=== PATIENT | male | born 1980 | race Caucasian/White ===

== ENCOUNTER → 2018-01-03 12:50 | Outpatient (CLI) | payer MEDICARE, MEDICAID, SELFPAY ==
--- NOTE | 2018-01-03 13:00 | RAD_ITS ---
STUDY: SWALLOWING STUDY REASON FOR EXAM: Male, 37 years old. Dysphagia. TECHNIQUE: The examination was performed with Speech Pathology and radiology in attendance. Under fluoroscopic observation, the patient ingested thin barium, thick barium, barium pudding and barium coated cracker. FLUOROSCOPY TIME: 1:55 minutes/seconds RADIOLOGIST INVOLVEMENT: Dr. Lee was present during the entire exam providing supervision. COMPARISON: None available. FINDINGS: The following was observed during swallowing of the various mixtures of barium: Thin Barium: There was no finding of adarsh aspiration but there was mild transient laryngeal penetration. Thick Barium: There was no finding of aspiration or laryngeal penetration. Barium Pudding: There was no finding of aspiration or laryngeal penetration. Barium Coated Cracker: There was no finding of aspiration or laryngeal penetration. RAD/Swallowing Function w/Video IMPRESSION: Please see speech pathology report for additional details. No adarsh aspiration identified. Mild laryngeal penetration noted with mild increased risk for aspiration. The swallow study findings were discussed with the patient by the speech pathologist at the conclusion of the examination. Please see speech pathology report for more information and recommendations. The procedure was performed by Jeana Nova under the direct supervision of Dr. Lee. Electronically Signed: Mansoor Lee, at 14:53 EDT Tel , Service support ,
--- NOTE | 2018-01-03 13:00 | SP.MBSS_ITS ---
PRIMARY / SECONDARY DIAGNOSIS: dysphagia (R13.10) REFERRING PHYSICIAN: Dr. Paul Mccoy MD CURRENT DIET: regular textures, thin liquids DENTITION: WFL MENTAL STATUS: appropriate for participation RESPIRATORY STATUS: O2 via room air PREVIOUS MODIFIED BARIUM SWALLOW STUDY: none REASON FOR REFERRAL: Patient is an 37 year old male referred for a modified barium swallow (MBS) study to objectively assess the Patients oropharyngeal swallow function under fluoroscopy secondary to the diagnosis of cerebral palsy. The Patient was accompanied by his detention caregiver, both deny any overt concerns with aspiration, objective assessment recommended following recent move to his new detention, with the staff recommending assessment to ensure tolerance. Per prior physical therapy workup, the Patient is able to walk up to 400 feet prior to fatiguing, able to complete ADL?s with minimal assistance (does have home health aides). MEDICAL HISTORY: Cerebral palsy with spastic diplegia, borderline MRDD, hypertension STUDY FINDINGS: Patient participated in a Modified Barium Swallow (MBS) study on 01/03/2018. Dr. Lee was the radiologist present for this evaluation. This study was recorded in the lateral view and images were sent to PACs for storage. The following consistencies were presented to this patient for analysis of oropharyngeal swallow function: thin liquids, pudding, and a regular textured, Freda Doone cookie. Results of the MBS are as follows: PENETRATION / ASPIRATION SCALE (AKHTAR): 1 = does not enter airway 2 = enters airway/above vocal folds/ejected 3 = enters airway/above vocal folds/not ejected 4 = enters airway/contacts vocal folds/ejected 5 = enters airway/contacts vocal folds/not ejected 6 = enters airway/below vocal folds/ejected 7 = enters airway/below vocal folds/not ejected despite effort 8 = enters airway/below vocal folds/no effort PENETRATION / ASPIRATION SCALE (SCORE) WITH VIDEOFLOROSCOPIC SCALE SCORE: Thin liquid - 5 mL tsp.: 1 Thin liquids via cup (single sip): 1 Thin liquids via cup (single sip): 2 Thin liquids via cup (single sip): 1 Thin liquids via cup (sequential swallows): 1 Pudding via spoon: 1 Pudding via spoon: 1 Regular textured cookie: 1 Thin liquids via cup (sequential swallows): 1 Thin liquids via cup (AP view): 1 IMPRESSION: DIAGNOSIS: mild oropharyngeal dysphagia (R13.12) ORAL PHASE CHARACTERIZED BY: LABIAL SEAL: no labial escape TONGUE CONTROL DURING BOLUS MANIPULATION: cohesive bolus between tongue to palatal seal BOLUS PREPARATION / MASTICATION: timely and efficient chewing and mashing BOLUS TRANSPORT / LINGUAL MOTION: brisk tongue motion with piecemeal deglutition ORAL RESIDUE: trace residue lining oral structures PHARYNGEAL PHASE CHARACTERIZED BY: INITIATION OF PHARYNGEAL SWALLOW: bolus head at posterior laryngeal surface of epiglottis at first hyoid excursion SOFT PALATE ELEVATION: no bolus between soft palate and pharyngeal wall LARYNGEAL ELEVATION: partial superior movement of thyroid cartilage/partial approximation of arytenoids cartilage to epiglottic petiole ANTERIOR HYOID EXCURSION: partial anterior movement EPIGLOTTIC MOVEMENT: complete epiglottic inversion LARYNGEAL VESTIBULE CLOSURE AT HEIGHT OF SWALLOW: complete laryngeal vestibule closure with no air/contrast in laryngeal vestibule PHARYNGEAL STRIPPING WAVE: pharyngeal stripping wave present / complete PHARYNGEAL CONTRACTION: complete PHARYNGOESOPHAGEAL SEGMENT OPENING: partial distension and partial duration; partial obstruction of flow TONGUE BASE RETRACTION: trace column of contrast between tongue base and posterior pharyngeal wall PHARYNGEAL RESIDUE: intermittent collection of residue within or on pharyngeal structures (primarily the pyriform sinus) ESOPHAGEAL PHASE CHARACTERIZED BY: ESOPHAGEAL BOLUS CLEARANCE IN THE UPRIGHT POSITION: complete clearance; esophageal coating DIET TEXTURE RECOMMENDATIONS: Will recommend a regular textured, thin liquid diet. COMPENSATORY STRATEGIES RECOMMENDED: Seated upright at 90 degrees during PO intake INTERPRETATION OF RESULTS: Patient presents with very mild oropharyngeal dysphagia (R13.12) secondary to the diagnosis of cerebral palsy with spastic diplegia. Swallow profile primarily marked by a mild impairment in pharyngeal swallow onset timing resulting in suboptimal bolus location upon swallow onset; and mild reduction in reduced anterior hyoid excursion contributing to reduced pharyngoesophageal segment opening with pharyngeal retention within the pyriforms (cleared with volitional re-swallow). Sufficient laryngeal vestibule pressure generated to expel penetrated material. Noted calcification along the anterior tracheal wall and anterior vocal fold notch. No aspiration appreciated throughout trials. RECOMMENDATIONS: Patient able to comprehend and express recommended intake precautions detailed above with sufficient detail to suggest high likelihood of compliance. Provided brief overview of signs and symptoms of aspiration, with recommendations for the Patient to further discuss symptoms with PCP. No further skilled speech-language services warranted at this time targeting dysphagia. ADDITIONAL COMMENTS/RECOMMENDATIONS: Results and recommendations were discussed with the Patient immediately following MBS completion, with the Patient verbalizing understanding and agreement with all recommendations and education provided. IMAGE COUNT: [id number] G-CODES: SWALLOWING [id number] Current Status: CI SWALLOWING G8997 Goal Status: CI SWALLOWING G8998 Discharge Status: CI Farhad Pierre M.A., [facility]LECT[employer]ICAL TRYOUT PERSON [facility] Speech-Language Pathology Department [email or web address]
== END ==
PROVIDERS: Family Provider Family Medicine; PCP Family Medicine; Referring Provider Family Medicine; Visit Provider Family Medicine
DX: R13.10 Dysphagia, unspecified (principal)
CPT/HCPCS: 74230; 92611; G8996; G8997; G8998

== ENCOUNTER 2018-01-30 16:14 | Emergency (ER) | payer MEDICARE, MEDICAID, SELFPAY ==
[2018-01-30 16:16] VITALS: BP 141/81; PULSE 84; RESP 19; TEMP 35.9; O2SAT 99; BMI 22.9
--- NOTE | 2018-01-30 16:21 | RAD_ITS ---
STUDY: X-RAY - LEFT ELBOW REASON FOR EXAM: Male, 37 years old. Pain after a fall TECHNIQUE: 3 view(s) of the elbow. COMPARISON: None. FINDINGS: Normal visualized humerus, radius and ulna. Normal radiocapitellar and ulnotrochlear articulations. The soft tissue structures are unremarkable. RAD/Elbow min 3 Views IMPRESSION: Normal x-ray examination of the elbow. Electronically Signed: Jose Lao MD at 17:05 EST , Service support ,
--- NOTE | 2018-01-30 16:48 | RAD_ITS ---
STUDY: X-RAY - RIGHT ELBOW REASON FOR EXAM: Male, 37 years old. Pain after a fall TECHNIQUE: 4 view(s) of the elbow. COMPARISON: None. FINDINGS: Normal visualized humerus, radius and ulna. Normal radiocapitellar and ulnotrochlear articulations. The soft tissue structures are unremarkable. RAD/Elbow min 3 Views IMPRESSION: Normal x-ray examination of the elbow. Electronically Signed: Jose Lao MD at 17:03 EST , Service support ,
--- NOTE | 2018-01-30 16:56 | ED.DCSUM_ITS ---
- ER Visit Summary Date of Service: 01/30/18 Chief Complaint: Sustained a mechanical fall he had both of his elbows and is complaining of pain. He is MRDD. He has no headache no head injury. Denies neck pain or any other injury. Physical Examination: Otherwise unremarkable exam without any significant findings. He is MRDD features. He has no shoulder pain or wrist pain he has bilateral posterior elbow pain, however both elbows have full range of motion with no pain on pronation supination flexion and extension. Emergency Department Course and Treatment: X-ray unremarkable, patient be discharged in stable condition. Reassurance given. Impression: Bilateral Elbow contusion This note was generated with [employer] dictation software. It may contain incorrect words, spelling, and punctuation that were not noted in review of the chart prior to signing ED Disposition - Plan for ED Patient: Disposition: Home or Assisted Living Chief Complaint: Upper Extremity Injury Instructions: ED Contusion Upper Ext Referrals: Oleg Mccoy MD [Primary Care Provider] - 3-5 Days
== END 2018-01-30 17:12 | disposition home or self-care (01) ==
PROVIDERS: Emergency Provider Emergency Medicine; Family Provider Family Medicine; PCP Family Medicine
DX: S50.02XA Contusion of left elbow, initial encounter (principal); S50.01XA Contusion of right elbow, initial encounter; F79 Unspecified intellectual disabilities; W19.XXXA Unspecified fall, initial encounter; Y93.89 Activity, other specified; Y92.89 Other specified places as the place of occurrence of the external cause; Y99.8 Other external cause status
CPT/HCPCS: 73080; 99282

== ENCOUNTER → 2018-06-05 16:45 | Outpatient (CLI) | payer MEDICARE, MEDICAID, SELFPAY ==
--- NOTE | 2018-06-05 18:15 | MRI_ITS ---
STUDY: MRI BRAIN WITH AND WITHOUT CONTRAST (ATTENTION INTERNAL AUDITORY CANALS - I.A.C.'s) REASON FOR EXAM: Male, 37 years old. Left ear hearing loss. TECHNIQUE: Standardized multiplanar fat and water weighted pulse sequences were obtained. Gadavist 8ml IV was administered for the contrast portion of the examination. COMPARISON: None. FINDINGS: Normal bilateral temporal bones. Normal bilateral internal auditory canals. There is no demonstrated intracanalicular or cisternal vestibular schwannoma (acoustic neuroma). There is no enhancement of the bilateral VIIth or VIIIth cranial nerves. Normal bilateral cochlea, vestibules and semicircular canals. Normal size of the ventricles and extra-axial spaces for the patient's age. Normal white matter tracts of the supratentorial brain. Normal bilateral basal ganglia. Normal thalami. Normal flow voids within the major intracranial circulation suggesting patency by spin echo criteria. There is no enhancing intra-axial or extra-axial abnormality. There is no extra-axial fluid accumulation. Normal sella turcica, pituitary gland, infundibular stalk, optic chiasm and hypothalamus. Normal tectal plate and pineal gland. Normal midbrain, lenny and medulla. Normal cerebellum. Normal basal cisterns. No demonstrated orbital abnormality, within the constraints of a routine brain study. There is mild mucosal thickening in the ethmoid and sphenoid sinuses. Normal calvarium and skull base. Normal visualized soft tissue structures. MRI/Brain W/WO Contrast IMPRESSION: 1. Unremarkable internal auditory canals. No evidence of vestibular schwannoma. 2. Mild microvascular ischemic changes. Atrophy. 3. Mild chronic sinusitis. Electronically Signed: Ammy Avelar MD at 20:32 EDT Tel , Service support ,
== END ==
PROVIDERS: Family Provider Family Medicine; PCP Family Medicine; Referring Provider Otolaryngology; Visit Provider Otolaryngology
DX: H90.41 Sensorineural hearing loss, unilateral, right ear, with unrestricted hearing on the contralateral side (principal)
CPT/HCPCS: 70553; A9585

== ENCOUNTER 2018-06-20 14:30 | Outpatient (RCR) | payer MEDICARE, MEDICAID, SELFPAY ==
--- NOTE | 2018-05-22 18:09 | HP.OTEVAL_ITS ---
Patient's Visit Information BRANNON DIAMOND is a 37 year old M, referred to Occupational Therapy by EDDY DIXON, with a diagnosis of CP, Ulnar collapse, R thumb. Date of Evaluation: 05/09/18 Occupational Therapist: Nathalie Tadeo - Subjective Subjective: Pt seen for initial OT eval after rupture ulnar collateral ligament of R thumb. Pt had reconstruction sx Mar 15, 2018 for UCL, pt was in cast for 6 wks after sx than in thumb spica splint 05/01/18. L hand dominent. Pt also has medical hx of CP. Pt lives in correction with 3 roommates, 24hr care, pt has assist with dressing, bathing, as needed, has assist with IADLs. Uses w/c and forearm crutches for mobility. Rides in bus to work daily. 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 - Objective Objective/Observation: Pt demo decreased ROM and strength R thumb - ROM ROM Comments: R thumb IP 0/40, MP 0/60 CMC 33'. L thumb IP 0/85, MP 0/96 CMC 68' - Strength Panel Lay Up Worker: L hand 90# R hand DNT Lateral Pinch: L hand 12# R hand DNT Tripod Pinch: L hand 14# R hand DNT - Edema Other: slight edema R thumb region - Sensation Sensation Comments: No numbness or tingling, pt states no hypersensitivity to incision - Quick DASH-Disab of Arm,Shoulder& Hand Quick DASH Score: 65.0000 - Goals Goal:100% adherence to protocol: Yes Goal:Daily scar massage when approriate: Yes Goal:ROM equal to unaffected hand: Yes Goal:Panel Lay Up Worker/Pinch strength at least 75% of unaffected hand: Yes Goal:No pain with affected hand use: Yes Goal:Full use of affected hand in daily activities including: Yes - Rehabilitation General Assessment: Pt demo decreased R thumb ROM, R hand strength and functional use of R hand all indicating a need for skilled OT services to increase R thumb ROM per protocol, R hand strength per protocol, educate on R UE HEP and scar mngmt tech. Rehabilitation Potential: Excellent - Anticipated Interventions Anticipated Interventions: A/AAROM/PROM, Strengthening, Edema Control, Scar Care, Massage, Modalities, Orthoses, Joint Protection/Energy Conservation, Fine Motor Coord/Gregg, ADL Training, Education re Diagnosis, Education re Skin Care and Precautions, Education re Self Massage Techniques, Caregiver Training, Home Program - Visit Plan Frequency: 1-2x /Week Duration: 4-6 Weeks General Plan: increase R thumb ROM per protocol, R hand strength per protocol, educate on R UE HEP and scar mngmt tech. TEXT: Thank you for the opportunity to evaluate your patient. For Medicare and Medicare HMO plans, please review the plan of care and approve it. It will need to be FAXED BACK to us at [phone] for Medicare purposes. Please let me know if there are questions or concerns regarding this plan of care. Physician Signature: Date:
--- NOTE | 2018-06-20 15:38 | HP.OTDCSUM_ITS ---
HP - OT D/C Summary It has been my pleasure to treat BRANNON DIAMOND under orders from EDDY DIXON, for the diagnosis of CP, Ulnar collapse, R thumb for a total of 6 visit(s). Please see the following information for a summary of their discharge status. - Overall Improvement % Improvement: 100 - Objective Objective/Function: increase R hand strength, follow protocol. lateral pinch 6#. tripod pinch 6# - Goals Patient Goals: Regain Strength, Decrease Pain, Decrease Swelling/Stiffness, Improve Fine Motor Skills, Use Hand/Wrist/Arm Normally Again, Increase ROM, Be More Independent in ADLS, Resume Former Household Responsibilities (Cooking,Cleaning,Yard, etc.), Resume Hobbies Goal:100% adherence to protocol: Yes Goal:Daily scar massage when approriate: Yes Goal:ROM equal to unaffected hand: Yes Goal:Ocular Care Technician/Pinch strength at least 75% of unaffected hand: Yes Goal:No pain with affected hand use: Yes Goal:Full use of affected hand in daily activities including: Yes - Plan Plan: d/c OT services. - D/C Information Discharge Comments: Pt has progressed with R thumb strength and AROM. Pt back to completing all BADLs/IADLs and hobbies independently without any pain. Pt and caregivers have been educated on theraputty HEP to continue to increase R hand household refrigerator mechanic strength. Pt has progressed with R hand household refrigerator mechanic strength to 55# and lateral pinch/tripod pinch to 8#. Educated pt and caregiver on recommendations to possibly trial platform forearm crutches to decrease pressure on bilateral thumbs if safe for pt with his ambulation only. Pt no longer requires skilled OT interventions with no pain, increased household refrigerator mechanic strength and education on R hand HEP to continue with progressing with household refrigerator mechanic strength with good understanding and demo. D/C OT services. If there are questions or concerns regarding this patient's occupational therapy, please fell free to call me at [phone]. Thank you for the referral of this patient. Sincerely, Nathalie Tadeo
== END 2018-06-20 19:00 | disposition home or self-care (01) ==
LOC: OT 14:30
PROVIDERS: Family Provider Family Medicine; PCP Family Medicine
DX: G80.9 Cerebral palsy, unspecified (principal); S63.641D Sprain of metacarpophalangeal joint of right thumb, subsequent encounter
CPT/HCPCS: 97110; 97165; 97166; 97530; 97763

== ENCOUNTER 2018-10-08 19:05 | Emergency (ER) | payer MEDICARE, MEDICAID, SELFPAY ==
[2018-10-08 19:08] VITALS: BP 116/62; PULSE 104; RESP 18; TEMP 37.5; O2SAT 92; BMI 31.6
--- NOTE | 2018-10-08 19:13 | ED.RN ---
CALLED FOR EKG PER RN REQUEST, NO OLD EKGS IN ES
--- NOTE | 2018-10-08 19:26 | ED.RN ---
WHILE DRAWING BLOOD FROM IV PATIENT HEART RATE DROPPED TO THE 50'S AND PATIENT COMPLAINED OF LIGHT HEADEDNESS. HEAD OF BED DOWN, HEART RATE UP INTO THE 70'S. WILL CONTINUE TO MONITOR.
--- NOTE | 2018-10-08 20:09 | RAD_ITS ---
STUDY: X-RAY CHEST REASON FOR EXAM: Male, 37 years old. Left chest pain TECHNIQUE: Frontal view COMPARISON: None. FINDINGS: The lungs are clear and expanded. There is no demonstrated pleural abnormality. Normal size heart. Normal mediastinum and booker. Normal visualized pulmonary arteries. Normal visualized aortic arch and descending thoracic aorta. Degenerative changes and scoliosis of the visualized thoracic spine. Normal visualized ribs, clavicles, and shoulders. There is no demonstrated abnormality of the visualized soft tissue structures of the upper abdomen. RAD/Chest 1 View (Portable) IMPRESSION: Normal x-ray examination of the chest. Electronically Signed: Emiliano Jimenez DO at 20:24 EDT Tel [phone], Service support ,
--- NOTE | 2018-10-08 20:09 | EKG12_ITS ---
Test Reason : CP Blood Pressure : / mmHG Vent. Rate : 098 BPM Atrial Rate : 098 BPM P-R Int : 152 ms QRS Dur : 082 ms QT Int : 318 ms P-R-T Axes : 024 059 009 degrees QTc Int : 405 ms Normal sinus rhythm Normal ECG Confirmed by HOWIE SYKES, BABATUNDE ([id number]), health editor LORI SUÁREZ ([id number]) on 10/10/2018 11:37:08 AM Referred By: ANAID Confirmed By:BABATUNDE DENISE MD
[2018-10-08 20:27] VITALS: BP 112/74; PULSE 93; RESP 25; O2SAT 94
[2018-10-08 20:28] VITALS: O2SAT 95
[2018-10-08] MEDS: 0.9% Normal Saline 1,000 ML 150 ML IV (20:33)
[2018-10-08] MEDS: Ketorolac 30 MG/ML Syringe IV (20:34)
[2018-10-08 20:39] LABS: Anion Gap 8 (5-15); BUN 21 mg/dL (7-18); BUN/Creat Ratio 23.2 RATIO (10-20); Calcium,Total 9.3 mg/dL (8.5-10.1); Chloride 106 mmol/L (98-107); EST Glomerular Filtration Rate 99 mL/min (>60); Est Glom Filt Rate - Afr Amer 120 mL/min (>60); Estimated Creatinine Clearance 104.05 ml/min; Glucose 119 mg/dL (74-106); Potassium 3.8 mmol/L (3.5-5.1); Sodium Level 138 mmol/L (136-145)
[2018-10-08 20:43] LABS: Absolute Lymphocyte Count 2.12 X10^3/ul (0.83-4.51); Absolute Neutrophil Count 6.5 X10^3/uL (2.0-7.7); Basophil# 0.04 X10^3/uL; Basophil% 0.4 % (0-1); Eosinophil# 0.21 X10^3/uL; Eosinophils% 2.1 % (0-5); Hematocrit 47.1 % (40-54); Hemoglobin 16.6 g/dl (13.0-16.5); Lymphocyte # 2.12 X10^3/ul (4.0); Mean Corp Hgb Conc 35.2 g/gl (32-36); Mean Corpuscular Hgb 31.2 pg (27.0-32.0); Mean Corpuscular Volume 88.5 fL (80-94); Mean Platelet Vol. 10.7 fl (6.2-12.0); Monocyte# 1.17 X10^3/uL; Monocyte% 11.6 % (0-10); Neutrophil % 64.4 % (47-70); Platelet Count 354 K/mm3 (150-450); RBC Distribution Width CV 12.7 % (11.6-14.6); Red Blood Count 5.32 M/mm3 (4.6-6.2); White Blood Count 10.1 K/mm3 (4.4-11.0)
[2018-10-08 20:44] LABS: POSITIVE COUNT NO; POSITIVE DIFFERENTIAL NO; POSITIVE MORPHOLOGY NO
[2018-10-08 20:50] LABS: D-Dimer Quantitative (DVT/PE) < 0.27 FEU/ug/m (0.27-0.49)
[2018-10-08 21:07] VITALS: BP 119/69; PULSE 86; RESP 18; O2SAT 96
--- NOTE | 2018-10-08 21:51 | ED.DCSUM_ITS ---
History of Present Illness Chief Complaint: Chest Pain Informant: Patient Onset: Today Current Severity: Mild Maximum Severity: Moderate Narrative: Patient presents with staff member with complaint of left upper chest pain that radiated down the left arm. Patient was given aspirin and nitro with squad with minimal improvement. Patient denies history of cardiac problems. - Past Medical History (1) Cerebral palsy Status: Acute (2) Hypertension Status: Chronic Past Medical History - Allergies and Home Meds Allergies/Adverse Reactions: Allergies No Known Allergies Allergy (Verified 10/08/18 19:12) Primary Care Physician: Oleg Mccoy MD [Primary Care Provider] - Prior records reviewed: Yes Past Medical History: - - Reviewed Lives: - - senior living Smoking Status: Current every day smoker Review of Systems General: Denies: Chills, Fever Cardiovascular: Reports: Chest pain Respiratory: Reports: Dyspnea. Denies: Cough, Sputum Gastrointestinal: Denies: Abdominal pain, Nausea, Vomiting Genitourinary: Denies: Dysuria Physical Exam Vital Signs/Narrative: Vital Signs Temp Pulse Resp BP Pulse Ox 10/08/18 21:07 86 18 119/69 96 10/08/18 20:28 95 10/08/18 20:27 93 25 H 112/74 94 10/08/18 19:08 99.5 F H 104 H 18 116/62 92 General: Well nourished, Well developed ENT: Moist mucous membranes Cardiovascular: Regular rate, Regular rhythm Respiratory: No distress, CTA bilaterally, - - Reproducible left upper chest wall tenderness. No crepitus. Abdomen: Soft, Nontender Skin: Normal color, No rash Neurological: Alert Diagnostic/Tx/Re-eval Impressions Chest X-Ray 10/08/18 20:09 IMPRESSION: Normal x-ray examination of the chest. Electronically Signed: Emiliano Jimenez DO at 20:24 EDT Tel [phone], Service support , 10/08/18 20:09 Chest 1 View (Portable) [RAD] Stat Laboratory Results 10/08/18 10/08/18 10/08/18 19:21 19:21 19:21 WBC 10.1 RBC 5.32 Hgb 16.6 H Hct 47.1 MCV 88.5 MCH 31.2 MCHC 35.2 RDW 12.7 RDW Differential 41.0 Plt Count 354 MPV 10.7 Immature Gran % (Auto) 0.500 Neut % (Auto) 64.4 Lymph % (Auto) 21.0 Sutter % (Auto) 11.6 H Eos % (Auto) 2.1 Baso % (Auto) 0.4 Absolute Neuts (auto) 6.5 Absolute Lymphs (auto) 2.12 D-Dimer Quant (PE/DVT) < 0.27 L Sodium 138 Potassium 3.8 Chloride 106 Carbon Dioxide 24.0 Anion Gap 8 BUN 21 H Creatinine 0.90 Estim Creat Clear Calc 104.05 Est GFR (MDRD) Af Amer 120 Est GFR (MDRD) Non-Af 99 BUN/Creatinine Ratio 23.2 H Glucose 119 H Calcium 9.3 Troponin I < 0.015 - EKG Initial EKG Interpretation: Sinus Rhythm, - - Sinus at 98 with no acute ischemia. - Medical Decision Making Patient presents with left upper chest pain shortly after getting off of a riding lawnmower. Pain is reproducible with palpation of the left upper chest. Work-up was unremarkable. On repeat evaluation patient is resting comfortably with no complaints. ED Disposition - Plan for ED Patient: Disposition: Home or Assisted Living Diagnosis: Chest wall pain Instructions: Chest Wall Strain Referrals: Oleg Mccoy MD [Primary Care Provider] - 3-5 Days if not improving
[2018-10-08 22:13] VITALS: BP 126/78; PULSE 87; RESP 20; O2SAT 97
== END 2018-10-08 22:39 | disposition home or self-care (01) ==
PROVIDERS: Emergency Provider Emergency Medicine; Family Provider Family Medicine; PCP Family Medicine
DX: R07.89 Other chest pain (principal); G80.9 Cerebral palsy, unspecified; I10 Essential (primary) hypertension; F17.200 Nicotine dependence, unspecified, uncomplicated; Z79.899 Other long term (current) drug therapy
CPT/HCPCS: 71045; 80048; 84484; 85025; 85379; 93005; 96361; 96374; 99285; J7030; A4216

== ENCOUNTER 2018-12-12 11:29 | Emergency (ER) | payer MEDICARE, MEDICAID, SELFPAY ==
[2018-12-12 11:30] VITALS: BP 130/82; PULSE 89; RESP 17; TEMP 36.9; O2SAT 96; BMI 30.5
--- NOTE | 2018-12-12 12:11 | CT_ITS ---
STUDY: CT ABDOMEN AND PELVIS WITH CONTRAST REASON FOR EXAM: Male, 38 years old. One day history of right lower quadrant pain. RADIATION DOSAGE (If Supplied By Facility): CTDIvol = ( 13.50 ) mGy, DLP = ( 745.38 ) mGycm TECHNIQUE: Transaxial images were obtained from the dome of the diaphragm to the symphysis pubis with oral contrast. 15ML Oral Gastrografin was administered. Sagittal and coronal images were reconstructed. Individualized dose optimization techniques were used for this CT. COMPARISON: Comparison is made with prior study dated September 08, 2014. FINDINGS: Mild degree of increased markings at the lung bases suggestive of basilar dependent atelectasis or scarring. This is unchanged. The visualized portions of the heart are within normal limits. There is decreased attenuation of the liver consistent with steatosis. Hepatomegaly. Normal gallbladder and extrahepatic biliary system. Normal spleen. Normal pancreas. Normal bilateral adrenal glands. Normal right kidney. Normal left kidney. There is a moderate-sized hiatal hernia. Normal small intestine. Normal colon. The appendix is visualized and appears normal. Normal abdominal aorta. Normal inferior vena cava. Normal retroperitoneum. Distended urinary bladder. There is a small umbilical hernia containing fat. Spondylolysis of the pars interarticularis at the L5 vertebrae. CT/Abdomen/Pel W ORAL Cont Only IMPRESSION: Hepatomegaly and diffuse fatty infiltration of the liver. Moderate sized hiatal hernia. Electronically Signed: Yordy Tompkins, at 14:13 EDT , Service support ,
[2018-12-12 12:41] LABS: Absolute Lymphocyte Count 1.68 X10^3/uL (0.83-4.51); Absolute Neutrophil Count 6.9 X10^3/uL (2.0-7.7); Basophil# 0.07 X10^3/uL; Basophil% 0.7 % (0-1); Eosinophil# 0.15 X10^3/uL; Eosinophils% 1.5 % (0-5); Hematocrit 50.5 % (40-54); Hemoglobin 17.1 g/dL (13.0-16.5); Lymphocyte # 1.68 X10^3/ul (4.0); Lymphocyte % 17.2 % (19-41); Mean Corp Hgb Conc 33.9 g/dL (32-36); Mean Corpuscular Hgb 31.1 pg (27.0-32.0); Mean Corpuscular Volume 91.8 fL (80-94); Mean Platelet Vol. 10.3 fl (6.2-12.0); Monocyte# 0.97 X10^3/uL; Monocyte% 9.9 % (0-10); NRBC Flagged by Analyzer 0 % (0-5); Neutrophil # 6.85 X10^3/uL (2.7-7.7); Platelet Count 308 K/mm3 (150-450); RBC Distribution Width CV 12.8 % (11.6-14.6); RBC Distribution Width SD 43.2 fl (35.1-43.9); White Blood Count 9.8 K/mm3 (4.4-11.0)
[2018-12-12 12:46] LABS: ALB/GLOB Ratio 1.2 RATIO (0.9-2.4); AST(SGOT) 48 U/L (15-37); Alanine Aminotransfer ALT/SGPT 115 U/L (16-61); Albumin, Serum 4.2 g/dL (3.2-5.0); Alkaline Phosphatase 66 U/L (45-117); Anion Gap 9 (5-15); BUN 20 mg/dL (7-18); BUN/Creat Ratio 21.4 RATIO (10-20); Calcium,Total 9.5 mg/dL (8.5-10.1); Chloride 105 mmol/L (98-107); Creatinine, Serum 0.93 mg/dL (0.70-1.30); EST Glomerular Filtration Rate 96 mL/min (>60); Est Glom Filt Rate - Afr Amer 116 mL/min (>60); Globulin 3.4 g/dL (2.2-4.2); Glucose 89 mg/dL (74-106); Potassium 4.1 mmol/L (3.5-5.1); Protein, Total 7.6 g/dL (6.4-8.2); Sodium Level 140 mmol/L (136-145)
[2018-12-12] MEDS: Morphine 4 MG/ML Syringe IV (12:54)
[2018-12-12] MEDS: Ondansetron 4 MG/2 ML Vial IV (12:54)
[2018-12-12] MEDS: 0.9% Normal Saline 1,000 ML 125 ML IV (12:56)
[2018-12-12 13:48] LABS: Bacteria 0 SEEN /hpf (None Seen); Color, Urine Yellow (Yellow); Glucose, Dipstick Normal (Normal); Ketone-Dipstick Negative (Negative); Leukocyte Esterase-Dipstick Negative /ul (Negative); Mucous, Urine 0 SEEN /hpf (<or=2+); Nitrite-Dipstick Negative (Negative); Occult Blood-Urine Negative /ul (Negative); Protein-Dipstick Negative (Negative); Red Blood Cells-Urine 0 SEEN /hpf (0-5); Specific Gravity, Urine 1.005 (1.002-1.030); Squamous Epithelial Cells - UA 0 SEEN /hpf (0-5); Urine Bilirubin Dipstick Negative (Negative); Urine Clarity Clear (Clear); Urine Urobilinogen Normal (Normal); White Blood Cells 0 SEEN /hpf (0-5)
--- NOTE | 2018-12-12 13:59 | ED.RN ---
Pt decided she wanted to speak with social worker masters. They have been notified.
--- NOTE | 2018-12-12 14:42 | ED.VISSUMM ---
- ER Visit Summary Date of Service: 12/12/18 Chief Complaint: [Abdominal pain] History of Present Illness: The patient is a 38 M [presents to the emergency department with abdominal pain that he has had since yesterday. Patient describes it as right lower quadrant. Patient rates pain a 9 out of 10. He denies any nausea or vomiting. Denies any diarrhea. Patient has had some mild dysuria and some frequency. Patient has history of GERD as well as hypertension high cholesterol. Patient denies any fevers.] Physical Examination: [HEENT-PERRLA, EOMI. Cranial nerves II through XII grossly intact. TMs clear. Mucous membranes moist. No adenopathy. Cardiovascular-regular rate and rhythm without murmur or ectopy Lungs-clear to auscultation, chest wall stable without crepitus or subcu emphysema Abdomen-normoactive bowel sounds. Abdomen is soft. He has some diffuse tenderness over the right lower quadrant as well as suprapubic region and left lower quadrant. Patient does have a sausage-shaped swelling over the inguinal area on the right side that is slightly tender to palpation. There is no erythema or warmth associated with this. Extremities-intact ?4, normal range of motion, normal pulses, atraumatic] Test Results: [CBC with differential obtained was normal. Chemistries were normal. Urinalysis was unremarkable. LFTs were unremarkable other than a slightly elevated ALT of 115 and AST of 48. CT scan of the abdomen pelvis with p.o. contrast showed hepatomegaly and fatty infiltration of the liver as well as an enlarged bladder.] Emergency Department Course and Treatment: [Patient medicated with morphine and Zofran IV. Patient was given normal saline. Discussed case with radiologist and he sees no evidence of inguinal hernia on the exam. Patient has not had any urinary retention or issues with urinating.] Treatment Plan: [Follow-up with primary care physician within next 3 to 5 days. Patient also will be referred to general surgeon for follow-up. Patient advised to return if fever, vomiting, or conditions worsen anyway.] Disposition: [Home in stable condition] Impression: [Abdominal pain-etiology uncertain] This note was generated with Section [employer]ation software. It may contain incorrect words, spelling, and punctuation that were not noted in review of the chart prior to signing ED Disposition - Plan for ED Patient: Referrals: Oleg Mccoy MD [Primary Care Provider] -
[2018-12-12 14:43] VITALS: RESP 14
--- NOTE | 2018-12-12 14:45 | ED.DEP ---
ED Disposition - Plan for ED Patient: Instructions: ABDOMINAL PAIN, Unkown Cause, (Male) Referrals: Oleg Mccoy MD [Primary Care Provider] - 3-5 Days Mansoor Pope MD [STAFF PHYSICIAN] - 3-5 Days
[2018-12-12 14:51] VITALS: BP 134/72
== END 2018-12-12 14:57 | disposition home or self-care (01) ==
LOC: ED 12:26
PROVIDERS: Emergency Provider Emergency Medicine; Family Provider Family Medicine; PCP Family Medicine
DX: R10.30 Lower abdominal pain, unspecified (principal); I10 Essential (primary) hypertension; E78.00 Pure hypercholesterolemia, unspecified; K21.9 Gastro-esophageal reflux disease without esophagitis; F98.8 Other specified behavioral and emotional disorders with onset usually occurring in childhood and adolescence; Z72.0 Tobacco use; Z79.899 Other long term (current) drug therapy
CPT/HCPCS: 74176; 80053; 81001; 85025; 96361; 96374; 96375; 99283; J7030; A4216; J2405

== ENCOUNTER 2021-06-21 08:37 | Outpatient (CLI) | payer MEDICARE, MEDICAID, SELFPAY ==
[2021-06-21 09:58] LABS: Hematocrit 40.9 % (40-54); Hemoglobin 13.8 g/dL (13.0-16.5); Mean Corp Hgb Conc 33.7 g/dL (32-36); Mean Corpuscular Hgb 30.5 pg (27.0-32.0); Mean Corpuscular Volume 90.3 fL (80-94); Mean Platelet Vol. 9.9 fl (6.2-12.0); Platelet Count 433 K/mm3 (150-450); RBC Distribution Width CV 13.2 % (11.6-14.6); RBC Distribution Width SD 43.6 fl (35.1-43.9); Red Blood Count 4.53 M/mm3 (4.6-6.2); White Blood Count 5.3 K/mm3 (4.4-11.0)
[2021-06-21 10:32] LABS: ALB/GLOB Ratio 1.2 RATIO (0.9-2.4); AST(SGOT) 18 U/L (15-37); Alanine Aminotransfer ALT/SGPT 28 U/L (16-61); Alkaline Phosphatase 77 U/L (45-117); Anion Gap 7 (5-15); BUN 21 mg/dL (7-18); BUN/Creat Ratio 28.9 RATIO (10-20); Calcium,Total 9.8 mg/dL (8.5-10.1); Chloride 100 mmol/L (98-107); Cholesterol 116 mg/dL (200); Creatinine, Serum 0.73 mg/dL (0.70-1.30); EST Glomerular Filtration Rate 126 mL/min (>60); Est Glom Filt Rate - Afr Amer 153 mL/min (>60); Globulin 3.4 g/dL (2.2-4.2); Glucose 91 mg/dL (74-106); High Density Lipoprotein 45 mg/dL; Potassium 3.7 mmol/L (3.5-5.1); Protein, Total 7.4 g/dL (6.4-8.2); Sodium Level 136 mmol/L (136-145); Triglycerides 70 mg/dL; Very Low Density Lipoprotein 14 mg/dL (5-40)
[2021-06-21 10:47] LABS: Hemoglobin A1c 5.2 % (3.8-5.6)
== END 2021-06-21 23:59 | disposition home or self-care (01) ==
LOC: LAB 08:41
PROVIDERS: PCP Family Medicine; Referring Provider Psychiatry & Neurology Child & Adolescent Psychiatry; Visit Provider Psychiatry & Neurology Child & Adolescent Psychiatry
DX: Z79.899 Other long term (current) drug therapy (principal)
CPT/HCPCS: 36415; 80053; 80061; 83036; 85027

== ENCOUNTER 2021-06-25 11:28 | Emergency (ER) | payer MEDICARE, MEDICAID, SELFPAY ==
[2021-06-25 11:29] VITALS: BP 137/84; PULSE 98; RESP 18; TEMP 36.3; O2SAT 100; BMI 23.0
--- NOTE | 2021-06-25 12:05 | RAD_ITS ---
STUDY: X-RAY - LEFT KNEE REASON FOR EXAM: Male, 40 years old. Pain following injury. TECHNIQUE: 3 view(s) of the knee. COMPARISON: None. FINDINGS: Normal visualized distal femur. Normal visualized proximal tibia and fibula. Normal proximal tibiofibular articulation. Normal medial femorotibial compartment. Normal lateral femorotibial compartment. High riding patella. The soft tissue structures are unremarkable. RAD/Knee 1 or 2 Views IMPRESSION: High riding patella. Electronically Signed: Yordy Tompkins MD at 12:20 EDT ,
--- NOTE | 2021-06-25 12:58 | EDS_ITS ---
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 He is able to stand and walk now. Patient has cerebral palsy, he lives at home and there is a junior sales representative from [employer] here who is contracted to help care for him. He suggests that this is happened before incidentally when the patient goes to work. 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 [facility] Medical History ADD (attention deficit disorder) GERD (gastroesophageal reflux disease) Hyperlipidemia Mood disorder Home Medications celecoxib 100 mg PO BID 07/25/13 [History Last Taken 09/08/14] guar gum [Fiber] 1 pkt PO DAILY 07/25/13 [History Last Taken 09/08/14] lisinopril 40 mg PO DAILY 07/25/13 [History Last Taken 09/08/14] multivitamin with folic acid [Thera] 1 tab PO DAILY 07/25/13 [History Last Taken 09/08/14] olanzapine [Zyprexa] 5 mg PO QHS 07/25/13 [History Last Taken 09/08/14] omega-3 fatty acids-fish oil [Harlem 3 Fish Oil Softgel] 1 ea PO DAILY 07/25/13 [History Last Taken 09/08/14] rabeprazole [Aciphex] 20 mg PO DAILY 07/25/13 [History Last Taken 09/08/14] hydrochlorothiazide 25 mg PO DAILY 09/08/14 [History Last Taken 09/08/14] baclofen 0.5 tab PO TID 10/08/18 [History Last Taken Unknown] cetirizine 10 mg PO DAILY 10/08/18 [History Last Taken Unknown] olanzapine 2.5 mg PO DAILY 10/08/18 [History Last Taken Unknown] Allergy/AdvReac Type Severity Reaction Status Date / Time No Known Allergies Allergy Verified 06/25/21 11:29 Social History Smoking Status: Current every day smoker tobacco type: cigarettes ROS ROS ED Constitutional Constitutional ED: Denies chills or fever(s) Musculoskeletal Musculoskeletal: Reports extremity pain; Denies neck pain Integumentary Denies Abrasions, rash or wounds Neurologic Neurologic: Denies paresthesias or weakness EXAM Physical Exam Const Vital Signs: 06/25/21 11:29 06/25/21 13:29 Temperature 97.4 F L Temperature Source Temporal Pulse Rate 98 90 Respiratory Rate 18 16 Blood Pressure 137/84 H 135/75 H Blood Pressure Mean 101 Pulse Ox 100 97 Oxygen Delivery Method Room Air Positive well nourished and well developed General Appearance ED: well developed and NAD Neck full ROM and supple Back/Spine normal ROM and normal to inspection Extremity Extremity Narrative: Left knee mildly tender at the tibial tuberosity and just above this before getting to the patella which is nontender. No other bony knee tenderness. Ligaments stable with short endpoints and no significant pain on stressing including the ACL and PCL. Full range of motion. No objective effusion. Patient has chronic deformities of both feet and ankles, with leg braces in place. Neuro oriented x3, no focal motor deficits and no sensory deficits noted Sensorium / Orientation: alert Psych mental status grossly normal and thought process normal Skin no wounds Rashes: no rashes MDM MDM MDM Narrative Medical decision making narrative: 4 view x-ray series of the left knee on m itral rotation is negative. Radiology adds that he has a high riding patella. I do not think this is acute. He is reassured and offered an Jasen wrap and ibuprofen. I discussed with social work to help address the request for at home care. Prior to social work being able to address their needs, the food preservation scientist and patient decided to leave. Radiography Diagnostic Testing: Clinical Impression(s) from Imaging Studies Knee X-Ray 06/25/21 12:05 IMPRESSION: High riding patella. Electronically Signed: Yordy Tompkins MD at 12:20 EDT , Discharge Plan Triage Chief Complaint: Lower Extremity Injury ED Provider: Brandon Amaya Dx/Rx/DC Orders Clinical Impression: Left knee sprain Instructions: ED Knee Sprain Prescriptions: No Action rabeprazole [AcipHex] 20 MG tablet 20 mg PO DAILY RF: 0 olanzapine [Zyprexa] 5 MG tablet 5 mg PO QHS RF: 0 celecoxib 100 MG capsule 100 mg PO BID RF: 0 lisinopril 40 MG tablet 40 mg PO DAILY RF: 0 Chewable Fiber 1 GM tablet,chewable 1 pkt PO DAILY RF: 0 One-Per-Day Harlem-3 1 EACH capsule,delayed release(DR/EC) 1 ea PO DAILY RF: 0 multivitamin with folic acid [Thera] 1 TABLET tablet 1 tab PO DAILY RF: 0 hydrochlorothiazide 25 MG tablet 25 mg PO DAILY RF: 0 cetirizine 10 MG tablet 10 mg PO DAILY RF: 0 olanzapine 2.5 MG tablet 2.5 mg PO DAILY RF: 0 baclofen 10 MG tablet 0.5 tab PO TID RF: 0 Primary Care Provider: Oleg Mccoy Referrals: Oleg Mccoy MD [Primary Care Provider] - 1 Week if not improving Disposition Disposition: Home, Self Care Discharge Date/Time: 06/25/21 13:30
[2021-06-25] MEDS: Ibuprofen 600 MG Tablet PO (13:17)
[2021-06-25 13:29] VITALS: BP 135/75; PULSE 90; RESP 16; O2SAT 97
== END 2021-06-25 13:30 | disposition home or self-care (01) ==
PROVIDERS: Emergency Provider Emergency Medicine; PCP Family Medicine; Visit Provider Emergency Medicine
DX: S83.92XA Sprain of unspecified site of left knee, initial encounter (principal); G80.9 Cerebral palsy, unspecified; F17.210 Nicotine dependence, cigarettes, uncomplicated; E78.5 Hyperlipidemia, unspecified; F98.8 Other specified behavioral and emotional disorders with onset usually occurring in childhood and adolescence; K21.9 Gastro-esophageal reflux disease without esophagitis; Z79.899 Other long term (current) drug therapy
CPT/HCPCS: 73560; 99283

== ENCOUNTER → 2021-08-12 | Outpatient (CLI) | payer MEDICARE, MEDICAID, SELFPAY ==
[2021-08-12 11:00] LABS: ALB/GLOB Ratio 1.2 RATIO (0.9-2.4); AST(SGOT) 16 U/L (15-37); Alanine Aminotransfer ALT/SGPT 23 U/L (16-61); Albumin, Serum 4.1 g/dL (3.2-5.0); Alkaline Phosphatase 78 U/L (45-117); Anion Gap 5 (5-15); BUN 16 mg/dL (7-18); BUN/Creat Ratio 18.5 RATIO (10-20); Calcium,Total 9.5 mg/dL (8.5-10.1); Chloride 105 mmol/L (98-107); Creatinine, Serum 0.87 mg/dL (0.70-1.30); EST Glomerular Filtration Rate 103 mL/min (>60); Est Glom Filt Rate - Afr Amer 125 mL/min (>60); Globulin 3.5 g/dL (2.2-4.2); Glucose 152 mg/dL (74-106); Potassium 4.2 mmol/L (3.5-5.1); Protein, Total 7.6 g/dL (6.4-8.2); Sodium Level 139 mmol/L (136-145)
== END | disposition home or self-care (01) ==
LOC: LAB 09:30
PROVIDERS: PCP Family Medicine; Visit Provider Psychiatry & Neurology Child & Adolescent Psychiatry
DX: Z79.899 Other long term (current) drug therapy (principal)
CPT/HCPCS: 36415; 80053

== ENCOUNTER → 2021-12-09 | Outpatient (CLI) | payer MEDICARE, MEDICAID, SELFPAY ==
[2021-12-09 10:50] LABS: Hematocrit 42.1 % (40-54); Hemoglobin 14.4 g/dL (13.0-16.5); Mean Corp Hgb Conc 34.2 g/dL (32-36); Mean Corpuscular Volume 93.6 fL (80-94); Mean Platelet Vol. 10.1 fl (6.2-12.0); Platelet Count 366 K/mm3 (150-450); RBC Distribution Width SD 44.8 fl (35.1-43.9); White Blood Count 9.8 K/mm3 (4.4-11.0)
[2021-12-09 11:35] LABS: ALB/GLOB Ratio 1.1 RATIO (0.9-2.4); AST(SGOT) 18 U/L (15-37); Alanine Aminotransfer ALT/SGPT 36 U/L (16-61); Albumin, Serum 4.1 g/dL (3.2-5.0); Alkaline Phosphatase 77 U/L (45-117); Anion Gap 6 (5-15); BUN 23 mg/dL (7-18); BUN/Creat Ratio 28.8 RATIO (10-20); Calcium,Total 9.5 mg/dL (8.5-10.1); Chloride 105 mmol/L (98-107); Cholesterol 114 mg/dL (200); EST Glomerular Filtration Rate 113 mL/min (>60); Est Glom Filt Rate - Afr Amer 136 mL/min (>60); Globulin 3.7 g/dL (2.2-4.2); Glucose 86 mg/dL (74-106); High Density Lipoprotein 52 mg/dL; Potassium 4.7 mmol/L (3.5-5.1); Protein, Total 7.8 g/dL (6.4-8.2); Sodium Level 140 mmol/L (136-145); Thyroid Stim Hormone (TSH) 0.84 uIU/mL (0.358-3.74); Triglycerides 33 mg/dL; Very Low Density Lipoprotein 7 mg/dL (5-40)
[2021-12-09 11:59] LABS: Hepatitis C Antibody Non-Reactive (Nonreactive)
== END | disposition home or self-care (01) ==
LOC: LAB 08:43
PROVIDERS: PCP Family Medicine; Referring Provider Family Medicine; Visit Provider Family Medicine
DX: I10 Essential (primary) hypertension (principal); Z11.59 Encounter for screening for other viral diseases
CPT/HCPCS: 36415; 80053; 80061; 84443; 85027; 86803

== ENCOUNTER 2022-03-25 12:32 | Emergency (ER) | payer MEDICARE, MEDICAID, SELFPAY ==
[2022-03-25 12:34] VITALS: BP 119/64; PULSE 78; RESP 18; TEMP 36.7; O2SAT 97; BMI 27.4
--- NOTE | 2022-03-25 12:57 | ED.VIS.BACK ---
HPI History of Present Illness Chief Complaint: Back Onset/Context/Timing Onset: Today Context: Sudden Onset Injury: twisting and fall Timing: Continuous Quality: Sharp Location: Lumbar and Right Leg Worsened by: improves with Nothing Relieved by: Nothing Associated Symptoms Associated Symptoms: Radiation to Right Leg; Negative for Numbness, Tingling, Radiation to Left Leg, Fever, Abdominal Pain, Urinary Retention, Urinary Incontinence, Constipation or Fecal Incontinence Narrative Narrative: Patient presents with back pain that began today. Patient states he was holding a door when the door started to close. Patient states it caused his back to twist and caused him to fall. Patient states he landed on his lower lumbar area. Patient describes the pain as sharp. Patient states nothing makes it worse and nothing makes it better. Patient has a history of cerebral palsy and has difficulty ambulating because of that. Patient states his pain radiates down his right leg. Patient denies any new paresthesias or weakness. Patient denies any bowel or bladder changes. Patient denies any saddle anesthesia. [facility] Medical History (Updated 03/25/22 @ 14:[address] Layton Cox, ) ADD (attention deficit disorder) Cerebral palsy Contact with and (suspected) exposure to other viral communicable diseases GERD (gastroesophageal reflux disease) Hyperlipidemia Mood disorder Home Medications celecoxib 100 mg capsule 100 mg PO BID 07/25/13 [History Last Taken 09/08/14] guar gum 1 gram chewable tablet (Chewable Fiber) 1 pkt PO DAILY 07/25/13 [History Last Taken 09/08/14] lisinopril 40 mg tablet 40 mg PO DAILY 07/25/13 [History Last Taken 09/08/14] multivitamin with folic acid 400 mcg tablet (Thera) 1 tab PO DAILY 07/25/13 [History Last Taken 09/08/14] olanzapine 5 mg tablet (Zyprexa) 5 mg PO QHS 07/25/13 [History Last Taken 09/08/14] omega-3 fatty acids-fish oil 684 mg-1,200 mg capsule,delayed release (One-Per-Day Simpson-3) 1 ea PO DAILY 07/25/13 [History Last Taken 09/08/14] rabeprazole 20 mg tablet,delayed release (AcipHex) 20 mg PO DAILY 07/25/13 [History Last Taken 09/08/14] hydrochlorothiazide 25 mg tablet 25 mg PO DAILY 09/08/14 [History Last Taken 09/08/14] baclofen 10 mg tablet 0.5 tab PO TID 10/08/18 [History Last Taken Unknown] cetirizine 10 mg tablet 10 mg PO DAILY 10/08/18 [History Last Taken Unknown] olanzapine 2.5 mg tablet 2.5 mg PO DAILY 10/08/18 [History Last Taken Unknown] Allergy/AdvReac Type Severity Reaction Status Date / Time ibuprofen Allergy NEEDS Verified 03/25/22 12:33 FOLLOW-UP Surgical History no surgical history no surgical history Social History Smoking Status: Current every day smoker tobacco type: cigarettes ROS ROS ED Constitutional Constitutional ED: Denies chills or fever(s) Eyes Eyes: Denies blurry vision or change in vision ENT ENT ED: Denies rhinorrhea or sore throat Cardiovascular Cardiovascular: Denies chest pain or palpitations Respiratory/Chest Respiratory/Chest: Denies cough or dyspnea Gastrointestinal Gastrointestinal: Denies nausea or vomiting Genitourinary Genitourinary ED: Denies dysuria or hematuria Musculoskeletal Musculoskeletal: Reports back pain; Denies neck pain Integumentary Denies abscess or rash Neurologic Neurologic: Denies headache(s) or weakness Allergic/Immunologic Allergic/Immunologic ED: Denies mouth swelling or urticaria EXAM Physical Exam Const Vital Signs: 03/25/22 12:34 Temperature 98.0 F Temperature Source Temporal Pulse Rate 78 Respiratory Rate 18 Blood Pressure 119/64 Blood Pressure Mean 82 Pulse Ox 97 Oxygen Delivery Method Room Air Positive well nourished and well developed General Appearance ED: well developed and NAD HEENT Reports moist mucous membranes Neck supple and no JVD Back/Spine Back/Spine Narrative: There is tenderness over the lumbar spine and paraspinal muscles. There is no bony crepitance or step-off. Range of motion was limited in all motions of the lumbar spine secondary to pain. There are no focal motor or sensory deficits noted. Lumbar Spine / Lower Back: ROM limited Psych mental status grossly normal MDM MDM MDM Narrative Medical decision making narrative: X-rays of the lumbar spine were obtained. There are 2 views. On my interpretation, there is no acute fracture or spondylolisthesis. There is some degenerative changes noted. There is an old compression fracture of T12 and L1. There is no acute fracture. Radiologist also interpreted the x-rays and agrees. Patient was advised of his findings. Patient was instructed use ice to the area. Patient was instructed to take Tylenol or ibuprofen as needed for pain. Patient understood and was agreeable with the plan. All questions were answered. Radiography X-Ray: LS SPine, Normal Bony Alignment and DJD Diagnostic Testing: Clinical Impression(s) from Imaging Studies Lumbar Spine X-Ray 03/25/22 13:20 IMPRESSION: 1. No acute findings in the lumbar spine. 2. Mild old anterior wedge compression fractures of the upper T12 and L1 vertebral bodies. 3. No significant interval change when compared to 04/25/2016. Electronically Signed: Maximilian Hernandez MD at 13:44 EST , Discharge Plan Triage Chief Complaint: Back ED Provider: Layton Cox Dx/Rx/DC Orders Clinical Impression: Acute lumbosacral myofascial strain, Cerebral palsy Instructions: ED Back Sprain/Strain Prescriptions: No Action rabeprazole [AcipHex] 20 MG tablet 20 mg PO DAILY olanzapine [Zyprexa] 5 MG tablet 5 mg PO QHS celecoxib 100 MG capsule 100 mg PO BID lisinopril 40 MG tablet 40 mg PO DAILY Chewable Fiber 1 GM tablet,chewable 1 pkt PO DAILY One-Per-Day Simpson-3 1 EACH capsule,delayed release(DR/EC) 1 ea PO DAILY multivitamin with folic acid [Thera] 1 TABLET tablet 1 tab PO DAILY hydrochlorothiazide 25 MG tablet 25 mg PO DAILY cetirizine 10 MG tablet 10 mg PO DAILY olanzapine 2.5 MG tablet 2.5 mg PO DAILY baclofen 10 MG tablet 0.5 tab PO TID Primary Care Provider: Oleg Mccoy Referrals: Oleg Mccoy MD [Primary Care Provider] - 5-7 Days Disposition Disposition: Home, Self Care
[2022-03-25] MEDS: HYDROcodone Bitartrate/Apap 5/325 Tablet PO (13:13)
--- NOTE | 2022-03-25 13:20 | RAD_ITS ---
EXAM: XR LUMBOSACRAL SPINE, 2 OR 3 VIEWS CLINICAL INDICATION: Injury/Pain TECHNIQUE: Frontal and lateral views of the lumbar spine and sacrum. This report was created using [employer] report generation technology. COMPARISON: 04/25/2016. FINDINGS: VERTEBRAE: Mild positional scoliosis. Mild anterior wedging of the upper T12 and L1 vertebral bodies are presumably from remote injury. Normal remaining vertebral body heights. No spondylolisthesis. No significant facet arthropathy. DISC SPACES: Normal lumbar disc space heights. GASTROINTESTINAL TRACT: Unremarkable as visualized. Included bowel gas pattern is non-obstructive. RAD/Lumbar Spine 2 or 3 Views IMPRESSION: 1. No acute findings in the lumbar spine. 2. Mild old anterior wedge compression fractures of the upper T12 and L1 vertebral bodies. 3. No significant interval change when compared to 04/25/2016. Electronically Signed: Maximilian Hernandez MD at 13:44 EST ,
== END 2022-03-25 15:06 | disposition home or self-care (01) ==
PROVIDERS: Emergency Provider Emergency Medicine; PCP Family Medicine; Visit Provider Emergency Medicine
DX: S39.012A Strain of muscle, fascia and tendon of lower back, initial encounter (principal); G80.9 Cerebral palsy, unspecified; F17.210 Nicotine dependence, cigarettes, uncomplicated; E78.5 Hyperlipidemia, unspecified; W19.XXXA Unspecified fall, initial encounter
CPT/HCPCS: 72100; 99284

== ENCOUNTER 2022-08-09 11:47 | Emergency (ER) | payer MEDICARE, MEDICAID, SELFPAY ==
[2022-08-09 11:48] VITALS: BP 130/69; PULSE 71; RESP 14; TEMP 36.8; O2SAT 100; BMI 28.4
[2022-08-09] MEDS: Acetaminophen 500 MG Tablet 1000 MG PO (12:13)
--- NOTE | 2022-08-09 12:13 | EX.ED.DYSGE1 ---
HPI History of Present Illness Chief Complaint: Fall Informant: patient Onset/Context/Timing Onset: Today Narrative Narrative: Patient presents via EMS after a fall. 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 He landed on his right knee but also twisted his back. He states he has chronic back pain that is now worsened in the left lower back. He denies any pain to his lower extremities. [facility] Medical History ADD (attention deficit disorder) Cerebral palsy Contact with and (suspected) exposure to other viral communicable diseases GERD (gastroesophageal reflux disease) Hyperlipidemia Mood disorder Home Medications celecoxib 100 mg capsule 100 mg PO BID 07/25/13 [History Last Taken 09/08/14] guar gum 1 gram chewable tablet (Chewable Fiber) 1 pkt PO DAILY 07/25/13 [History Last Taken 09/08/14] lisinopril 40 mg tablet 40 mg PO DAILY 07/25/13 [History Last Taken 09/08/14] multivitamin with folic acid 400 mcg tablet (Thera) 1 tab PO DAILY 07/25/13 [History Last Taken 09/08/14] olanzapine 5 mg tablet (Zyprexa) 5 mg PO QHS 07/25/13 [History Last Taken 09/08/14] omega-3 fatty acids-fish oil 684 mg-1,200 mg capsule,delayed release (One-Per-Day Lyle-3) 1 ea PO DAILY 07/25/13 [History Last Taken 09/08/14] rabeprazole 20 mg tablet,delayed release (AcipHex) 20 mg PO DAILY 07/25/13 [History Last Taken 09/08/14] hydrochlorothiazide 25 mg tablet 25 mg PO DAILY 09/08/14 [History Last Taken 09/08/14] baclofen 10 mg tablet 0.5 tab PO TID 10/08/18 [History Last Taken Unknown] cetirizine 10 mg tablet 10 mg PO DAILY 10/08/18 [History Last Taken Unknown] olanzapine 2.5 mg tablet 2.5 mg PO DAILY 10/08/18 [History Last Taken Unknown] Allergy/AdvReac Type Severity Reaction Status Date / Time ibuprofen Allergy NEEDS Verified 08/09/22 11:48 FOLLOW-UP Social History Smoking Status: Current every day smoker tobacco type: cigarettes ROS ROS ED Constitutional Constitutional ED: Denies chills or fever(s) Eyes Eyes: Denies change in vision or discharge from eye(s) ENT ENT ED: Denies discharge from eye(s), rhinorrhea or sore throat Cardiovascular Cardiovascular: Denies chest pain or palpitations Respiratory/Chest Respiratory/Chest: Denies cough or dyspnea Gastrointestinal Gastrointestinal: Denies abdominal pain, nausea or vomiting Genitourinary Genitourinary ED: Denies difficulty urinating or dysuria Musculoskeletal Musculoskeletal: Reports back pain; Denies extremity pain Integumentary Denies Abrasions or rash Neurologic Neurologic: Denies headache(s) or weakness Allergic/Immunologic Allergic/Immunologic ED: Denies lip swelling or urticaria EXAM Physical Exam Const Vital Signs: 08/09/22 11:48 08/09/22 11:51 Temperature 98.2 F Temperature Source Temporal Pulse Rate 71 Respiratory Rate 14 Respiratory Effort Normal Non-Labored Blood Pressure 130/69 H Blood Pressure Mean 89 Pulse Ox 100 Oxygen Delivery Method Room Air Positive well nourished and well developed General Appearance ED: well developed HEENT Reports moist mucous membranes Eyes PERRL and EOMs intact bilaterally Neck no lymphadenopathy Chest Wall inspection of chest normal and palpation of chest normal Resp normal respiratory effort and clear to auscultation bilaterally Cardio regular rate and regular rhythm GI normal to inspection, nondistended, normoactive bowel sounds Back/Spine Back/Spine Narrative: No midline tenderness. He does have reproducible tenderness in the left low lumbar paraspinal region. No overlying abrasions or erythema. Extremity Extremity Narrative: Braces noted to the ankles bilaterally. No tenderness to palpation over the knees and no abrasions. Neuro oriented x3 Skin no rashes or lesions noted MDM MDM MDM Narrative Medical decision making narrative: X-rays of the lumbar spine obtained. Patient given Tylenol for pain. Radiography Diagnostic Testing: Clinical Impression(s) from Imaging Studies Lumbar Spine X-Ray 08/09/22 12:20 IMPRESSION: Mild dextroscoliosis. Grade 1-2 anterior listhesis of L5 on S1 due to spondylolysis of the pars interarticularis of the L5 vertebrae. Stable mild wedging of the superior aspect of the T12 and L1 vertebral bodies. Electronically Signed: Yordy Tompkins MD at 13:04 EDT , Treatment and Re-Evaluation :: Lumbar spine x-rays per my interpretation reveal scoliosis and chronic changes. No evidence of acute fracture. Radiology interpretation is reviewed and agrees. Test results discussed with patient along with caregiver from assisted. Patient be discharged home and can use Tylenol and [id number] Lidoderm patches as needed to help with pain. Discharge Plan Triage Chief Complaint: Fall ED Provider: Delfina Hernandez Dx/Rx/DC Orders Clinical Impression: Fall, Strain of lumbar paraspinal muscle Instructions: ED Back Sprain/Strain Prescriptions: No Action rabeprazole [AcipHex] 20 MG tablet 20 mg PO DAILY olanzapine [Zyprexa] 5 MG tablet 5 mg PO QHS celecoxib 100 MG capsule 100 mg PO BID lisinopril 40 MG tablet 40 mg PO DAILY Chewable Fiber 1 GM tablet,chewable 1 pkt PO DAILY One-Per-Day Lyle-3 1 EACH capsule,delayed release(DR/EC) 1 ea PO DAILY multivitamin with folic acid [Thera] 1 TABLET tablet 1 tab PO DAILY hydrochlorothiazide 25 MG tablet 25 mg PO DAILY cetirizine 10 MG tablet 10 mg PO DAILY olanzapine 2.5 MG tablet 2.5 mg PO DAILY baclofen 10 MG tablet 0.5 tab PO TID Primary Care Provider: Oleg Mccoy Referrals: Oleg Mccoy MD [Primary Care Provider] - 1 Week if not improving Disposition Disposition: Home, Self Care
--- NOTE | 2022-08-09 12:20 | RAD_ITS ---
STUDY: X-RAY - LUMBAR SPINE REASON FOR EXAM: Male, 41 years old. Low back pain following a fall. TECHNIQUE: 2 view(s) of the lumbar spine were obtained. COMPARISON: Comparison is made with prior study dated March 25, 2022. FINDINGS: Normal lumbar lordosis. There is a mild dextroscoliosis of the lumbar spine. Grade 2 anterior listhesis of L5 on S1 with spondylolysis of the pars interarticularis of the L5 vertebrae. Stable mild anterior wedging of the superior endplate of the T12 and L1 vertebra. Normal disc space heights. The soft tissue structures are unremarkable. RAD/Lumbar Spine 2 or 3 Views IMPRESSION: Mild dextroscoliosis. Grade 1-2 anterior listhesis of L5 on S1 due to spondylolysis of the pars interarticularis of the L5 vertebrae. Stable mild wedging of the superior aspect of the T12 and L1 vertebral bodies. Electronically Signed: Yordy Tompkins MD at 13:04 EDT ,
[2022-08-09 14:00] VITALS: RESP 18
== END 2022-08-09 14:12 | disposition home or self-care (01) ==
PROVIDERS: Emergency Provider Emergency Medicine; PCP Family Medicine; Visit Provider Emergency Medicine
DX: S39.012A Strain of muscle, fascia and tendon of lower back, initial encounter (principal); F17.210 Nicotine dependence, cigarettes, uncomplicated; G89.29 Other chronic pain; W19.XXXA Unspecified fall, initial encounter
CPT/HCPCS: 72100; 99284

== ENCOUNTER 2022-09-02 11:43 | Emergency (ER) | payer MEDICARE, MEDICAID, SELFPAY ==
[2022-09-02 11:44] VITALS: BP 135/87; PULSE 773; RESP 14; TEMP 36.8; O2SAT 98; BMI 28.3
--- NOTE | 2022-09-02 12:09 | ED.VIS.BACK ---
HPI History of Present Illness Chief Complaint: Back Informant: patient Narrative Narrative: Patient has a history of cerebral palsy and scoliosis, he was at work today and states he was walking down a ramp and suddenly had his back seize up with pain and muscle spasm in his left lower back. No radiation down his lower extremities, it did cause him to fall but he did not injure himself, denies any bowel or bladder dysfunction or loss of consciousness/other injury. He states it feels okay right now while he is lying here, but it hurts to move. Prior similar symptoms: Yes and With Prior Back Pain [facility] Medical History ADD (attention deficit disorder) Cerebral palsy Contact with and (suspected) exposure to other viral communicable diseases GERD (gastroesophageal reflux disease) Hyperlipidemia Mood disorder Home Medications celecoxib 100 mg capsule 100 mg PO BID 07/25/13 [History Last Taken 09/08/14] guar gum 1 gram chewable tablet (Chewable Fiber) 1 pkt PO DAILY 07/25/13 [History Last Taken 09/08/14] lisinopril 40 mg tablet 40 mg PO DAILY 07/25/13 [History Last Taken 09/08/14] multivitamin with folic acid 400 mcg tablet (Thera) 1 tab PO DAILY 07/25/13 [History Last Taken 09/08/14] olanzapine 5 mg tablet (Zyprexa) 5 mg PO QHS 07/25/13 [History Last Taken 09/08/14] omega-3 fatty acids-fish oil 684 mg-1,200 mg capsule,delayed release (One-Per-Day [place]-3) 1 ea PO DAILY 07/25/13 [History Last Taken 09/08/14] rabeprazole 20 mg tablet,delayed release (AcipHex) 20 mg PO DAILY 07/25/13 [History Last Taken 09/08/14] hydrochlorothiazide 25 mg tablet 25 mg PO DAILY 09/08/14 [History Last Taken 09/08/14] baclofen 10 mg tablet 0.5 tab PO TID 10/08/18 [History Last Taken Unknown] cetirizine 10 mg tablet 10 mg PO DAILY 10/08/18 [History Last Taken Unknown] olanzapine 2.5 mg tablet 2.5 mg PO DAILY 10/08/18 [History Last Taken Unknown] Allergy/AdvReac Type Severity Reaction Status Date / Time ibuprofen Allergy NEEDS Verified 08/09/22 11:48 FOLLOW-UP Social History Smoking Status: Current every day smoker tobacco type: cigarettes ROS ROS ED Constitutional Constitutional ED: Denies chills or fever(s) Gastrointestinal Gastrointestinal: Denies abdominal pain, constipation, fecal incontinence, nausea or vomiting Genitourinary Genitourinary ED: Reports other Details: no urinary retention ; Denies abdominal discomfort or urinary incontinence Musculoskeletal Musculoskeletal: Reports as per HPI and back pain; Denies neck pain Integumentary Denies rash or wounds Neurologic Neurologic: Denies headache(s), paresthesias or weakness EXAM Physical Exam Const Vital Signs: 09/02/22 11:44 09/02/22 13:28 Temperature 98.3 F Temperature Source Temporal Pulse Rate 773 H 64 Respiratory Rate 14 16 Blood Pressure 135/87 H 119/98 H Blood Pressure Mean 103 Pulse Ox 98 98 Oxygen Delivery Method Room Air Positive well nourished and well developed General Appearance ED: well developed and NAD HEENT Negative for trauma or tenderness Eyes PERRL and EOMs intact bilaterally Neck full ROM and supple GI normal to inspection, nondistended, normoactive bowel sounds, soft to palpation and non-tender Back/Spine Back/Spine Narrative: Normal to inspection except for thoracic scoliosis curve which is nontender Lumbar Spine / Lower Back: ROM limited, paraspinal muscle tenderness left and straight leg raise negative bilaterally; Negative for lumbar spinal tenderness Extremity normal to inspection, full ROM and no pedal edema Neuro oriented x3 and no sensory deficits noted Sensorium / Orientation: alert Motor Exam: strength 5/5 throughout and clonus absent Deep Tendon Reflexes: Rt Patellar (L4): 2+, Lt Patellar (L4): 2+, Rt Ankle (S1): 2+ and Lt Ankle (S1): 2+ Deep Tendon Reflexes Back: Rt Patellar (L4): 2+, Lt Patellar (L4): 2+, Rt Ankle (S1): 2+ and Lt Ankle (S1): 2+ Plantar Reflex: Downgoing: bilateral Psych mental status grossly normal and thought process normal Skin no rashes or lesions noted and no wounds MDM MDM MDM Narrative Medical decision making narrative: No bony tenderness or indication for x-ray at this time, I reassured patient we treated him with Norflex 60 mg IM and an oral Toradol, he already takes Celebrex daily at home, he is comfortable with that plan and discharged stable improved condition. Discharge Plan Triage Chief Complaint: Back ED Provider: Brandon Amaya Dx/Rx/DC Orders Clinical Impression: Lumbar paraspinal muscle spasm Instructions: ED Back Spasm, No Trauma Prescriptions: No Action rabeprazole [AcipHex] 20 MG tablet 20 mg PO DAILY olanzapine [Zyprexa] 5 MG tablet 5 mg PO QHS celecoxib 100 MG capsule 100 mg PO BID lisinopril 40 MG tablet 40 mg PO DAILY Chewable Fiber 1 GM tablet,chewable 1 pkt PO DAILY One-Per-Day [place]-3 1 EACH capsule,delayed release(DR/EC) 1 ea PO DAILY multivitamin with folic acid [Thera] 1 TABLET tablet 1 tab PO DAILY hydrochlorothiazide 25 MG tablet 25 mg PO DAILY cetirizine 10 MG tablet 10 mg PO DAILY olanzapine 2.5 MG tablet 2.5 mg PO DAILY baclofen 10 MG tablet 0.5 tab PO TID Stand Alone Forms: ED Work / School Excuse Primary Care Provider: Oleg Mccoy Referrals: Oleg Mccoy MD [Primary Care Provider] - 1 Week if not improving Disposition Disposition: Home, Self Care Discharge Date/Time: 09/02/22 13:29
[2022-09-02] MEDS: traMADol 50 MG Tablet PO (13:12)
[2022-09-02] MEDS: Orphenadrine 60 MG/2 ML Ampul IM (13:13)
[2022-09-02 13:28] VITALS: BP 119/98; PULSE 64; RESP 16; O2SAT 98
== END 2022-09-02 13:29 | disposition home or self-care (01) ==
LOC: ED 12:25
PROVIDERS: Emergency Provider Emergency Medicine; PCP Family Medicine; Visit Provider Emergency Medicine
DX: M62.830 Muscle spasm of back (principal); G80.9 Cerebral palsy, unspecified; F17.210 Nicotine dependence, cigarettes, uncomplicated
CPT/HCPCS: 96372; 99284

== ENCOUNTER → 2022-09-09 | Outpatient (CLI) | payer MEDICARE, MEDICAID, SELFPAY ==
[2022-09-09 09:15] LABS: Hematocrit 45.7 % (40-54); Hemoglobin 15.3 g/dL (13.0-16.5); Mean Corp Hgb Conc 33.5 g/dL (32-36); Mean Corpuscular Hgb 31.9 pg (27.0-32.0); Mean Corpuscular Volume 95.4 fL (80-94); Mean Platelet Vol. 9.6 fl (6.2-12.0); Platelet Count 438 K/mm3 (150-450); RBC Distribution Width CV 12.8 % (11.6-14.6); RBC Distribution Width SD 45.2 fl (35.1-43.9); Red Blood Count 4.79 M/mm3 (4.6-6.2); White Blood Count 10.5 K/mm3 (4.4-11.0)
[2022-09-09 09:41] LABS: AST(SGOT) 24 U/L (15-37); Alanine Aminotransfer ALT/SGPT 50 U/L (16-61); Albumin, Serum 4.1 g/dL (3.2-5.0); Alkaline Phosphatase 78 U/L (45-117); Anion Gap 6 (5-15); BUN 13 mg/dL (7-18); BUN/Creat Ratio 15.9 RATIO (10-20); Chloride 106 mmol/L (98-107); Cholesterol 127 mg/dL (200); Creatinine, Serum 0.82 mg/dL (0.70-1.30); EST Glomerular Filtration Rate 109 mL/min (>60); Est Glom Filt Rate - Afr Amer 132 mL/min (>60); Glucose 91 mg/dL (74-106); High Density Lipoprotein 33 mg/dL; Potassium 4.9 mmol/L (3.5-5.1); Protein, Total 8.1 g/dL (6.4-8.2); Sodium Level 139 mmol/L (136-145); Triglycerides 221 mg/dL; Very Low Density Lipoprotein 44 mg/dL (5-40)
[2022-09-09 10:04] LABS: Hemoglobin A1c 5.2 % (3.8-5.6)
== END | disposition home or self-care (01) ==
LOC: LAB 08:33
PROVIDERS: PCP Family Medicine; Visit Provider Psychiatry & Neurology Child & Adolescent Psychiatry
DX: Z79.899 Other long term (current) drug therapy (principal)
CPT/HCPCS: 36415; 80053; 80061; 83036; 85027

== ENCOUNTER 2022-10-06 11:57 | Emergency (ER) | payer MEDICARE, MEDICAID, SELFPAY ==
[2022-10-06 11:59] VITALS: BP 130/80; PULSE 89; RESP 14; TEMP 36.1; O2SAT 98; BMI 29.4
--- NOTE | 2022-10-06 12:03 | EDS_ITS ---
HPI <TOYA Goldstein - Last Filed: 10/06/22 13:11> History of Present Illness Chief Complaint: Lower Extremity Injury Narrative Narrative: 41-year-old male was at work when his right knee buckled causing him to fall and land on his flexed right knee. He was brought in by EMS because he could not ambulate. At baseline he wears bilateral AFO braces for clubfeet. He states his right knee has buckled a couple times before. His denies previous injury or surgery. No weakness numbness or tingling. PFS <TOYA Goldstein - Last Filed: 10/06/22 13:11> [facility] Medical History ADD (attention deficit disorder) Cerebral palsy Contact with and (suspected) exposure to other viral communicable diseases GERD (gastroesophageal reflux disease) Hyperlipidemia Mood disorder Home Medications celecoxib 100 mg capsule 100 mg PO BID 07/25/13 [History Last Taken 09/08/14] guar gum 1 gram chewable tablet (Chewable Fiber) 1 pkt PO DAILY 07/25/13 [History Last Taken 09/08/14] lisinopril 40 mg tablet 40 mg PO DAILY 07/25/13 [History Last Taken 09/08/14] multivitamin with folic acid 400 mcg tablet (Thera) 1 tab PO DAILY 07/25/13 [History Last Taken 09/08/14] olanzapine 5 mg tablet (Zyprexa) 5 mg PO QHS 07/25/13 [History Last Taken 09/08/14] omega-3 fatty acids-fish oil 684 mg-1,200 mg capsule,delayed release (One-Per-Day [place]-3) 1 ea PO DAILY 07/25/13 [History Last Taken 09/08/14] rabeprazole 20 mg tablet,delayed release (AcipHex) 20 mg PO DAILY 07/25/13 [History Last Taken 09/08/14] hydrochlorothiazide 25 mg tablet 25 mg PO DAILY 09/08/14 [History Last Taken 09/08/14] baclofen 10 mg tablet 0.5 tab PO TID 10/08/18 [History Last Taken Unknown] cetirizine 10 mg tablet 10 mg PO DAILY 10/08/18 [History Last Taken Unknown] olanzapine 2.5 mg tablet 2.5 mg PO DAILY 10/08/18 [History Last Taken Unknown] Allergy/AdvReac Type Severity Reaction Status Date / Time ibuprofen Allergy NEEDS Verified 10/06/22 11:58 FOLLOW-UP Social History Smoking Status: Current every day smoker tobacco type: cigarettes ROS <TOYA Goldstein - Last Filed: 10/06/22 13:11> ROS ED ROS Narrative Neuro: Negative for motor/sensory dysfunction. Skin: Negative for wound. Musc: Positive for right knee pain, trauma. EXAM <TOYA Goldstein - Last Filed: 10/06/22 13:11> Physical Exam Narrative Exam Narrative: CONST: Patient sitting in no acute distress. EYES: Normal inspection. NECK: Normal inspection. RESP: No respiratory distress, CTAB. CVS: Regular rate and rhythm, no murmur, no gallop. SKIN: Color normal, no rash, warm, dry, intact. EXTREMITIES: Chronic bilateral clubfeet with AFO braces. Right knee appears normal with no effusion or bruising. Extension intact. Negative anterior/posterior and varus and valgus stress. Distal sensation intact, 2+ DP pulses. Distal strength limited by chronic foot deformities. NEURO: Oriented x4. PSYCH: Normal affect. Const Vital Signs: 10/06/22 11:59 Temperature 97 F L Temperature Source Temporal Pulse Rate 89 Respiratory Rate 14 Blood Pressure 130/80 H Blood Pressure Mean 96 Pulse Ox 98 <Dr. Brandon Amaya MD - Last Filed: 10/06/22 16:01> Physical Exam Const Vital Signs: 10/06/22 11:59 Temperature 97 F L Temperature Source Temporal Pulse Rate 89 Respiratory Rate 14 Blood Pressure 130/80 H Blood Pressure Mean 96 Pulse Ox 98 MDM <TOYA Goldstein - Last Filed: 10/06/22 13:11> MDM MDM Narrative Medical decision making narrative: Patient's right knee buckled and then he fell onto the right knee. No head injury. There is no knee effusion or external signs of injury. Distal pulses intact. Extension intact. Knee x-ray shows no acute fracture or dislocation. He was given Tylenol and he is able to ambulate. I discussed RICE protocol and follow-up with his doctor and he was discharged in stable condition. Differential: Knee contusion, fracture, ligamentous or meniscal injury Radiography Diagnostic Testing: Clinical Impression(s) from Imaging Studies Knee X-Ray 10/06/22 12:22 IMPRESSION: Normal x-ray examination of the knee. Electronically Signed: Yordy Tompkins MD at 12:42 EDT , ED attending interpretation of right knee shows no acute fracture or dislocation <Dr. Brandon Amaya MD - Last Filed: 10/06/22 16:01> MDM Radiography Diagnostic Testing: Clinical Impression(s) from Imaging Studies Knee X-Ray 10/06/22 12:22 IMPRESSION: Normal x-ray examination of the knee. Electronically Signed: Yordy Tompkins MD at 12:42 EDT , Treatment and Re-Evaluation Narrative: I have personally performed a face to face assessment of the patient and have reviewed the WALKER Note. I performed a substantive portion of the visit including all aspects of the following. My weber findings include: History is [right knee buckled and then he fell onto it, difficulty bearing weight and bending it now. No other injuries.] Exam is tender anterior right knee. All ligaments stable. Limited range of motion due to pain. No significant effusion. No deformity. Limited evaluation of ACL PCL due to patient not wanting to bend, but the joint is stable with attempted stressing. Medical Decison Making x-ray, supportive care if no fracture, will be offered crutches if needed and follow-up advised Other additions or changes: [None] Discharge Plan Triage Chief Complaint: Lower Extremity Injury ED Midlevel Provider: Jami Roca ED Provider: Brandon Amaya Dx/Rx/DC Orders Clinical Impression: Contusion of knee, right Instructions: ED Knee Sprain Prescriptions: No Action rabeprazole [AcipHex] 20 MG tablet 20 mg PO DAILY olanzapine [Zyprexa] 5 MG tablet 5 mg PO QHS celecoxib 100 MG capsule 100 mg PO BID lisinopril 40 MG tablet 40 mg PO DAILY Chewable Fiber 1 GM tablet,chewable 1 pkt PO DAILY One-Per-Day [place]-3 1 EACH capsule,delayed release(DR/EC) 1 ea PO DAILY multivitamin with folic acid [Thera] 1 TABLET tablet 1 tab PO DAILY hydrochlorothiazide 25 MG tablet 25 mg PO DAILY cetirizine 10 MG tablet 10 mg PO DAILY olanzapine 2.5 MG tablet 2.5 mg PO DAILY baclofen 10 MG tablet 0.5 tab PO TID Primary Care Provider: Oleg Mccoy Referrals: Oleg Mccoy MD [Primary Care Provider] - Activity Restrictions/Additional Instructions: Ice and take tylenol as needed for knee pain. Follow up with your PCP. Disposition Disposition: Home, Self Care Discharge Date/Time: 10/06/22 13:00
--- NOTE | 2022-10-06 12:22 | RAD_ITS ---
STUDY: X-RAY - RIGHT KNEE REASON FOR EXAM: Male, 41 years old. Posterior right knee pain following a fall. TECHNIQUE: 4 view(s) of the knee. COMPARISON: None. FINDINGS: Normal visualized distal femur. Normal visualized proximal tibia and fibula. Normal proximal tibiofibular articulation. Normal medial femorotibial compartment. Normal lateral femorotibial compartment. Normal patellofemoral articulation. The soft tissue structures are unremarkable. RAD/Knee 1 or 2 Views IMPRESSION: Normal x-ray examination of the knee. Electronically Signed: Yordy Tompkins MD at 12:42 EDT ,
== END 2022-10-06 13:00 | disposition home or self-care (01) ==
PROVIDERS: Emergency Provider Emergency Medicine; PCP Family Medicine; Visit Provider Emergency Medicine
DX: S80.01XA Contusion of right knee, initial encounter (principal); Q66.89 Other specified congenital deformities of feet; F17.210 Nicotine dependence, cigarettes, uncomplicated; W19.XXXA Unspecified fall, initial encounter
CPT/HCPCS: 73560; 99284

== ENCOUNTER 2023-03-28 14:10 | Emergency (ER) | payer MEDICARE, MEDICAID, SELFPAY ==
[2023-03-28 14:11] VITALS: BP 133/71; PULSE 67; RESP 18; TEMP 36.5; O2SAT 100; BMI 28.8
--- NOTE | 2023-03-28 14:24 | ED.RN ---
THIS RN CALLED [facility] [employer] AT [place] ASKING IF PATIENT NEEDS DRUG SCREEN. 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
--- NOTE | 2023-03-28 14:45 | RAD_ITS ---
STUDY: X-RAY - PELVIS AND LEFT HIP REASON FOR EXAM: Male, 42 years old. Injury. Pain. TECHNIQUE: A single frontal views of the pelvis and hip. COMPARISON: None. FINDINGS: There is a non-specific bowel gas pattern. Normal visualized soft tissue structures. Normal bilateral iliac wings, sacroiliac joints and visualized sacrum. Normal bilateral superior and inferior pubic rami. Normal pubic symphysis. Normal bilateral ischial tuberosities. Normal visualized femoral head. Normal acetabulum. Normal hip joint. RAD/Pelvis 1 or 2 Views IMPRESSION: Normal x-ray examination of the pelvis and hip. Electronically Signed: Charanjit Moore MD at 15:24 EST ,
--- NOTE | 2023-03-28 14:48 | EDS_ITS ---
HPI HPI - Fall History of Present Illness Chief Complaint: Fall Informant: patient Narrative Narrative: Patient states he had a fall in his left hip today while transferring to a piece of wood during therapy. States is having trouble moving and walking since then. No other injuries. Did not hit his head. [facility] Medical History ADD (attention deficit disorder) Cerebral palsy Contact with and (suspected) exposure to other viral communicable diseases GERD (gastroesophageal reflux disease) Hyperlipidemia Mood disorder Home Medications celecoxib 100 mg capsule 100 mg PO BID 07/25/13 [History Last Taken 09/08/14] guar gum 1 gram chewable tablet (Chewable Fiber) 1 pkt PO DAILY 07/25/13 [History Last Taken 09/08/14] lisinopril 40 mg tablet 40 mg PO DAILY 07/25/13 [History Last Taken 09/08/14] multivitamin with folic acid 400 mcg tablet (Thera) 1 tab PO DAILY 07/25/13 [History Last Taken 09/08/14] olanzapine 5 mg tablet (Zyprexa) 5 mg PO QHS 07/25/13 [History Last Taken 09/08/14] omega-3 fatty acids-fish oil 684 mg-1,200 mg capsule,delayed release (One-Per-Day [place]-3) 1 ea PO DAILY 07/25/13 [History Last Taken 09/08/14] rabeprazole 20 mg tablet,delayed release (AcipHex) 20 mg PO DAILY 07/25/13 [History Last Taken 09/08/14] hydrochlorothiazide 25 mg tablet 25 mg PO DAILY 09/08/14 [History Last Taken 09/08/14] baclofen 10 mg tablet 0.5 tab PO TID 10/08/18 [History Last Taken Unknown] cetirizine 10 mg tablet 10 mg PO DAILY 10/08/18 [History Last Taken Unknown] olanzapine 2.5 mg tablet 2.5 mg PO DAILY 10/08/18 [History Last Taken Unknown] Allergy/AdvReac Type Severity Reaction Status Date / Time ibuprofen Allergy NEEDS Verified 03/28/23 14:11 FOLLOW-UP Social History Smoking Status: Current every day smoker tobacco type: cigarettes ROS ROS ED Constitutional Constitutional ED: Denies chills or fever(s) Musculoskeletal Musculoskeletal: Reports extremity pain; Denies neck pain Integumentary Denies Abrasions, rash or wounds Neurologic Neurologic: Denies paresthesias or weakness EXAM Physical Exam Const Vital Signs: 03/28/23 14:11 03/28/23 14:46 Temperature 97.7 F L Temperature Source Temporal Pulse Rate 67 Respiratory Rate 18 Respiratory Effort Normal Respiratory Depth Normal Respiratory Pattern Normal Blood Pressure 133/71 H Blood Pressure Mean 91 Pulse Ox 100 Oxygen Delivery Method Room Air Positive well nourished and well developed General Appearance ED: well developed and NAD HEENT atraumatic Eyes Eyes Narrative: Disconjugate gaze Neck full ROM and supple Back/Spine normal ROM and normal to inspection Extremity Extremity Narrative: Mild shortening left lower extremity, subjectively painful with news intern al/external rotation. Does not want to flex his knee yet. Tender to greater trochanter. Pelvis stable to AP compression without significant ASIS tenderness. Tenderness goes down to the mid thigh. No tenderness at the knee or distal to that. He is wearing braces on both ankles/feet. Neuro oriented x3, no focal motor deficits and no sensory deficits noted Sensorium / Orientation: alert Psych mental status grossly normal and thought process normal Skin no wounds Rashes: no rashes MDM MDM MDM Narrative Medical decision making narrative: 5 view x-ray series of the left hip, pelvis, and the rest of the femur all negative on my interpretation. Furthermore the patient has a rocked pelvis with his left acetabulum and femoral head higher than the right, which would explain his distal length discrepancy which is probably chronic. Given this we attempted to have the patient ambulate. He did very well without any limitations, therefore my suspicion for an occult hip fracture is extremely low here and is 42-year-old male. Given appropriate discharge instructions. Radiography Diagnostic Testing: Clinical Impression(s) from Imaging Studies Pelvis X-Ray 03/28/23 14:45 IMPRESSION: Normal x-ray examination of the pelvis and hip. Electronically Signed: Charanjit Moore MD at 15:24 EST , Femur X-Ray 03/28/23 14:50 IMPRESSION: Normal x-ray examination of the femur. Electronically Signed: Charanjit Moore MD at 15:40 EST , Discharge Plan Triage Chief Complaint: Fall ED Provider: Brandon Amaya Dx/Rx/DC Orders Clinical Impression: Contusion of left hip and thigh Instructions: ED Hip Contusion Prescriptions: No Action rabeprazole [AcipHex] 20 MG tablet 20 mg PO DAILY olanzapine [Zyprexa] 5 MG tablet 5 mg PO QHS celecoxib 100 MG capsule 100 mg PO BID lisinopril 40 MG tablet 40 mg PO DAILY Chewable Fiber 1 GM tablet,chewable 1 pkt PO DAILY One-Per-Day [place]-3 1 EACH capsule,delayed release(DR/EC) 1 ea PO DAILY multivitamin with folic acid [Thera] 1 TABLET tablet 1 tab PO DAILY hydrochlorothiazide 25 MG tablet 25 mg PO DAILY cetirizine 10 MG tablet 10 mg PO DAILY olanzapine 2.5 MG tablet 2.5 mg PO DAILY baclofen 10 MG tablet 0.5 tab PO TID Primary Care Provider: Oleg Mccoy Referrals: [facility]] - 3-5 Days if not improving Oelg Mccoy MD [Primary Care Provider] - Disposition Disposition: Home, Self Care Discharge Date/Time: 03/28/23 15:41
--- NOTE | 2023-03-28 14:50 | RAD_ITS ---
STUDY: X-RAY - LEFT FEMUR REASON FOR STUDY: Male, 42 years old. Injury. Fall. Pain. TECHNIQUE: 2 view(s) of the femur on 4 images. COMPARISON: None. FINDINGS: Normal visualized femur. Normal visualized soft tissue structure. RAD/Femur Min 2 Views IMPRESSION: Normal x-ray examination of the femur. Electronically Signed: Charanjit Moore MD at 15:40 EST ,
--- NOTE | 2023-03-28 15:21 | ED.RN ---
TURNER CALLED AT [facility]. SOMEONE IS ON THEIR WAY TO TAKE HIM HOME. MOTHER, ABHISHEK CALLED. UPDATED THAT NOTHING IS BROKEN. ABHISHEK ASKING ABOUT TREATMENT. TYLENOL AND REST. CAN FOLLOW UP WITH PCP
--- OUTSIDE RECORDS SUMMARY | 2023-03-28 17:38 | XMS RPT_ITS | CCD ---
Author Name Unknown Address [address] [place] [address] Organization [facility] Care Team Providers Care Learning Design Specialist Name Role Phone BIJU MORTON Unavailable Unavailable PHYSICIAN, NOT RECORDED Unavailable Unavaila ble Oleg Mccoy Unavailable Unavailable PROVIDER, UNKNOWN Unavailable Unavailable Darius Oleg Unavailable Unavailable Darius, Oleg Unavailable Unavailable PROVIDER, UNKNOWN Unavailable Unavailable Oleg Mccoy Unavailable Unavailable Clarissa Anderson, Mauro Knight Primary Care Provider Unavailable Darius SYKES, Oleg Primary Care Provider [phone] Oleg Mccoy MD Primary Care Provider [phone] Oleg Mccoy MD Primary Care Provider [phone] SORAYA TINEO Referring Unavailable CLARISSA BARBER, MAURO KNIGHT Primary Care Jeet ROMO JR, MAURO KNIGHT Primary Care Jeet ROMO JR, MAURO KNIGHT Primary Care WILLIAMS Nance Referring Unavailable CLARISSA BARBER, MAURO KNIGHT Primary Care OLEG Morin Attending Unavailable DARIUS, OLEG Primary Care Unavailable DELFINA MCNEILL Attending Unavailable DARIUS, OLEG Primary Care Unavailable OLEG MCCOY Attending Unavailable DARIUS, OLEG Primary Care Unavailable MAURO MONTILLA Attending Unavailable MAURO MONTILLA Referring Unavailable DARIUS, OLEG Primary Care Unavailable DARIUS, OLEG Referring Unavailable DARIUS, OLEG Primary Care Unavailable MAURO MONTILLA Attending Unavailable DARIUS, OLEG Attending Unavailable DARIUS, OLEG Primary Care Unavailable Allergies Allergy Classification Reported Allergen(s) Allergy Type Date of Onset Reaction(s) Facility (18 sources) buPROPion; Translations: [BUPROPION] Drug Allergy 11-12-2016 Other: See Comments [facility] (18 sources) Ibuprofen; Translations: [IBUPROFEN] Drug Allergy 04-25-2013 Other: See Comments [facility] Medications Current Medications Medication Drug Class(es) Dates Sig (Normalized) Sig (Original) acetaminophen 500 mg oral tablet (6 sources) Start: 01-23-2023 End: 02-05-2023 take 1 tablet by mouth every twelve hours as needed for pain acetaminophen (Tylenol) 500 MG tablet Take 1 tablet (500 mg) by mouth every 12 hours as needed for mild pain (1-3), headaches or fever for up to 10 days. 180 tablet 3 01/26/2023 02/05/2023 Active baclofen 10 mg oral tablet (13 sources) gamma-Aminobutyr ic Acid-ergic Agonist Start: 10-08-2018 baclofen (Lioresal) 10 MG tablet Completed/Discontinued Medications Medication Drug Class(es) Dates Sig (Normalized) Sig (Original) betamethasone 0.5 mg/ml / clotrimazole 10 mg/ml topical cream (5 sources) Azole Antifungal, Corticosteroid Start: 11-03-2022 End: 01-02-2023 clotrimazole-betam ethasone (Lotrisone) cream Indications: Pruritic rash Apply topically 2 times daily. 15 g 0 11/03/2022 01/02/2023 cetirizine hydrochloride 10 mg oral tablet (1 source) Histamine-1 Receptor Antagonist End: 10-13-2022 cetirizine (ZyrTEC) 10 MG tablet Every 24 hours. 0 10/13/2022 Discontinued (Med list cleanup) Fiber (2 sources) Fiber cap Take b y mouth. 0 Active Problems Active Problems Problem Classification Problem Date Documented Date Episodic/Chronic Disorders of lipid metabolism (17 sources) Mixed hyperlipidemia; Translations: [Mixed hyperlipidemia] Onset: 04-28-2017 01-07-2022 Chronic Disorders usually diagnosed in infancy, childhood, or adolescence (17 sources) Attention deficit hyperactivity disorder, predominantly inattentive type; Translations: [Other specified behavioral and emotional disorders with onset usually occurring in childhood and adolescence] Onset: 12-02-2014 01-07-2022 Chronic Esophageal disorders (17 sources) Gastroesophageal reflux disease; Translations: [Gastro-esophageal reflux disease without esophagitis] Onset: 04-09-2015 01-07-2022 Chronic Essential hypertension (18 sources) Benign hypertension; Translations: [Essential (primary) hypertension] Onset: 12-02-2014 01-07-2022 Chronic External cause codes: Natural/environment (2 sources) Exposure to other specified factors, initial encounter; Translations: [Exposure to other specified factors, initial encounter] Onset: 01-29-2018 Immunizations and screening for infectious disease (4 sources) Needs influenza immunization; Translations: [Encounter for immunization] Onset: 01-06-2023 01-06-2023 Episodic Joint disorders and dislocations; trauma-related (2 sources) Subluxation of metacarpal (bone), proximal end of right hand, initial encounter; Translations: [Sublux of MC (bone), proximal end of right hand, init] Onset: 01-29-2018 Episodic Mood disorders (17 sources) Mood disorder; Translations: [Unspecified mood [affective] disorder] Onset: 12-02-2014 01-07-2022 Chronic Osteoarthritis (1 source) Osteoarthritis of joint of right wrist; Translations: [Primary osteoarthritis, right wrist] 01-31-2023 Chronic Other connective tissue disease (1 source) Recurrent falls ; Translations: [Repeated falls] 10-13-2022 Episodic Other inflammatory condition of skin (2 sources) Pruritic rash; Translations: [Other prurigo] 11-03-2022 Episodic Other non-traumatic joint disorders (1 source) Acute ankle pain; Translations: [Pain in right ankle and joints of right foot] Episodic Other non-traumatic joint disorders (4 sources) Pain of right wrist; Translations: [Pain in right wrist] 01-06-2023 Episodic Other non-traumatic joint disorders (2 sources) Pain in right wrist; Translations: [Pain in right wrist] Onset: 01-06-2023 Episodic Paralysis (19 sources) Cerebral palsy; Translations: [Cerebral palsy, unspecified] Onset: 04-14-2006 04-14-2006 Chronic Residual codes; unclassified (1 source) Pain; Translations: [Pain, unspecified] 01-13-2023 Episodic Residual codes; unclassified (1 source) Pain, unspecified; Translations: [Pain] Onset: 01-13-2023 Episodic Substance-related disorders (20 sources) Smoker; Translations: [Nicotine dependence, unspecified, uncomplicated] Onset: 03-30-2022 10-14-2022 Chronic Past or Other Problems Problem Classification Problem Date Documented Date Episodic/Chronic Acquired foot deformities (15 sources) Right foot drop; Translations: [Foot drop, right foot] Onset: 0 01-07-2022 Episodic Nonspecific chest pain (15 sources) Chest wall pain; Translations: [Other chest pain] Onset: 0 Resolved: 3 07-01-2022 Episodic Other connective tissue disease (15 sources) Disorder of musculoskeletal system; Translations: [Soft tissue disorder, unspecified] Onset: 0 01-07-2022 Episodic Other connective tissue disease (2 sources) Soft tissue disorder, unspecified; Translations: [Soft tissue disorder, unspecified] Onset: 2 Episodic Other inflammatory condition of skin (2 sources) Other prurigo; Translations: [Other prurigo] Onset: 3 Episodic Other non-traumatic joint disorders (1 source) Pain in right ankle and joints of right foot; Translations: [Acute right ankle pain] Onset: 3 Episodic Other screening for suspected conditions (not mental disorders or infectious disease) (17 sources) Electromyogram abnormal; Translations: [Abnormal electromyogram [EMG]] Onset: 0 01-07-2022 Episodic Residual codes; unclassified (15 sources) Unspecified problems with limbs and other problems; Translations: [Problem] Onset: 0 Resolved: 3 07-01-2022 Episodic Spondylosis; intervertebral disc disorders; other back problems (15 sources) Lumbar radiculopathy; Translations: [Radiculopathy, lumbar region] Onset: 0 Resolved: 3 07-01-2022 Episodic Sprains and strains (20 sources) Rupture of ulnar collateral ligament of thumb; Translations: [Sprain of metacarpophalangeal joint of unspecified thumb, initial encounter] Onset: 0 Resolved: 3 07-01-2022 Episodic Results Test Name Value Interpretation Reference Range Facil ity Vital Signs Date Time Vital Sign Value Performing Clinician Michael díaz 01-31-2023 10:18-0500 Body height 171.5 cm Mauro Montilla MD Work Phone: [facility] 01-31-2023 10:18-0500 Body mass index (BMI) [Ratio] 28.7 kg/m2 Mauro Montilla MD Work Phone: [facility] 01-31-2023 10:18-0500 Body weight 84.37 kg Mauro Montilla MD Work Phone: [facility] 01-31-2023 10:18-0500 Diastolic blood pressure 74 mm[Hg] Mauro Montilla MD Work Phone: [facility] 01-31-2023 10:18-0500 Systolic blood pressure 120 mm[Hg] Mauro Montilla MD Work Phone: [facility] 01-13-2023 12:46-0400 Body temperature 98.1 [degF] Soraya Tineo APRN.[employer]ED [employer]ARD [employer] DRAFTSMAN Work Phone: [facility] 01-13-2023 12:46-0400 Body weight 78.47 kg Soraya Tineo APRN.[employer] DRAFTSMAN Work Phone: [facility] 01-13-2023 12:46-0400 Diastolic blood pressure 82 mm[Hg] Soraya Tineo APRN.[employer]SMAN Work Phone: [facility] 01-13-2023 12:46-0400 Heart rate 88 /min Soraya Tineo APRN.[employer]SMAN Work Phone: [facility] 01-13-2023 12:46-0400 Respiratory rate 16 /min Soraya Tineo APRN.[employer] DRAFTSMAN Work Phone: [facility] 01-13-2023 12:46-0400 SaO2% (BldA) [Mass fraction] 95 % Soraya Tineo APRN.[employer] DRAFTSMAN Work Phone: [facility] 01-13-2023 12:46-0400 Systolic blood pressure 132 mm[Hg] Soraya Tineo APRN.[employer] DRAFTSMAN Work Phone: [facility] 01-06-2023 10:50-0400 Body height 171.5 cm Oleg Mccoy MD Work Phone: [facility] 01-06-2023 10:50-0400 Body mass index (BMI) [Ratio] 28.7 kg/m2 Oleg Mccoy MD Work Phone: [facility] 01-06-2023 10:50-0400 Body weight 84.37 kg Oleg Mccoy MD Work Phone: [facility] 01-06-2023 10:50-0400 Diastolic blood pressure 84 mm[Hg] Oleg Mccoy MD Work Phone: [facility] 01-06-2023 10:50-0400 Heart rate 77 /min Oleg Mccoy MD Work Phone: [facility] 01-06-2023 10:50-0400 SaO2% (BldA) [Mass fraction] 95 % Oleg Mccoy MD Work Phone: [facility] 01-06-2023 10:50-0400 Systolic blood pressure 138 mm[Hg] Oleg Mccoy MD Work Phone: [facility] 11-03-2022 09:51-0400 Body height 171.5 cm Oleg Mcocy MD Work Phone: [facility] 11-03-2022 09:51-0400 Body mass index (BMI) [Ratio] 27.78 kg/m2 Oleg Mccoy MD Work Phone: [facility] 11-03-2022 09:51-0400 Body weight 81.65 kg Olge Mccoy MD Work Phone: [facility] 11-03-2022 09:51-0400 Diastolic blood pressure 81 mm[Hg] Oleg Mccoy MD Work Phone: [facility] 11-03-2022 09:51-0400 Heart rate 82 /min Oleg Mccoy MD Work Phone: [facility] 11-03-2022 09:51-0400 SaO2% (BldA) [Mass fraction] 95 % Oleg Mccoy MD Work Phone: [facility] 11-03-2022 09:51-0400 Systolic blood pressure 136 mm[Hg] Oleg Mccoy MD Work Phone: [facility] 10-13-2022 11:47-0400 Body height 170.2 cm Delfina Mcneill CHEMICAL MACHINE TENDER - PR[employer] DRAFTSMAN Work Phone: [facility] 10-13-2022 11:47-0400 Body mass index (BMI) [Ratio] 26.78 kg/m2 Delfina Mcneill CHEMICAL MACHINE TENDER - [employer] DRAFTSMAN Work Phone: [facility] 10-13-2022 11:47-0400 Body weight 77.56 kg Delfina Mcneill CHEMICAL MACHINE TENDER - [employer] DRAFTSMAN Work Phone: [facility] 10-13-2022 11:47-0400 Diastolic blood pressure 89 mm[Hg] Delfina Mcneill CHEMICAL MACHINE TENDER - PR[employer] PCB DRAFTSMAN Work Phone: [facility] 10-13-2022 11:47-0400 Heart rate 75 /min Delfina Mcneill CHEMICAL MACHINE TENDER - [employer] DRAFTSMAN Work Phone: [facility] 10-13-2022 11:47-0400 SaO2% (BldA) [Mass fraction] 97 % Delfina Mcneill CHEMICAL MACHINE TENDER - [employer] DRAFTSMAN Work Phone: [facility] 10-13-2022 11:47-0400 Systolic blood pressure 133 mm[Hg] Delfina Mcneill CHEMICAL MACHINE TENDER - [employer] DRAFTSMAN Work Phone: [facility] 05-27-2022 10:29-0500 Body temperature 97.9 [degF] Williams Jason MD Work Phone: [facility] 05-27-2022 10:29-0500 Diastolic blood pressure 78 mm[Hg] Williams Jason MD Work Phone: [facility] 05-27-2022 10:29-0500 Heart rate 71 /min Williams Jason MD Work Phone: [facility] 05-27-2022 10:29-0500 Respiratory rate 16 /min Williams Jason MD Work Phone: [facility] 05-27-2022 10:29-0500 SaO2% (BldA) [Mass fraction] 97 % Williams Jason MD Work Phone: [facility] 05-27-2022 10:29-0500 Systolic blood pressure 128 mm[Hg] Williams Jason MD Work Phone: [facility] Encounters Encounter Date Encounter Type Care Provider Facility Start: 03-23-2023 Refill Oleg Mccoy MD Work Phone: [facility] Start: 01-31-2023 End: 02-01-2023 ambulatory [facility] Start: 01-31-2023 End: 01-31-2023 Office outpatient new 30 minutes Mauro Montilla MD Work Phone: [facility] Procedures Date Procedure Procedure Detail Performing Clinician Start: 01-06-2023 Adult depression screening assessment Oleg Mccoy MD Work Phone: Start: 10-13-2022 Follow-up visit Follow-up JODIE MCNEILL Start: 09-09-2022 Lipid 1996 panel - S víctor or Plasma Delfina Mcneill CHEMICAL MACHINE TENDER - [employer] DRAFTSMAN Work Phone: Start: 12-10-2021 Lipid 1996 panel - S víctor or Plasma Oleg Mccoy MD Work Phone: Start: 04-23-2020 Lipid 1996 panel - S víctor or Plasma Soraya Tineo CHEMICAL MACHINE TENDER.PRINTED [employer]ARD [employer] DRAFTSMAN Work Phone: Plan of Treatment Date Care Activity Detail Author Start: 2039 RSV Immunization aged 60 or older (1 - 1-dose 60+ series) RSV Immunization aged 60 or older (1 - 1-dose 60+ series) [facility] Start: 10-14-2029 Zoster Vaccines (1 of 2) Zoster Vaccines (1 of 2) [facility] Start: 09-10-2027 Lipid panel Lipid Panel [facility] Start: 12-10-2026 Lipid panel Lipid Panel [facility] Start: 10-13-2026 DTaP/Tdap/Td Vaccines (2 - Td or Tdap) DTaP/Tdap/Td Vaccines (2 - Td or Tdap) [facility] Start: 10-13-2026 Urine microalbumin profile DTaP,Tdap,Td Vaccine (2 - Td or Tdap) [facility] Start: 09-09-2025 Diabetes mellitus screening Diabetes Screening [facility] Start: 04-23-2025 Lipid 1996 panel - Serum or Plasma Lipid Screening [facility] Start: 04-23-2025 LIPID SCREEN LIPID SCREEN [facility] Start: 01-09-2024 End: 01-09-2024 Patient encounter procedure 01/09/2024 10:20 AM EDT Office Visit [facility] [address] [place] [id number] Oleg Mccoy MD [address] [place], [place] [id number] [facility] Start: 01-07-2024 Depression Screening Depression Screening [facility] Start: 07-11-2023 End: 07-11-2023 Patient encounter procedure 07/11/2023 11:00 AM EDT Office Visit [facility] [place] [address] Oleg Mccoy MD [address] [place] [address] [facility] Start: 01-31-2023 End: 05-03-2023 XR Wrist - right 3 Views [facility] Sy stem Work Phone: Immunizations Immunization Date Immunization Notes Care Provider Fa [facility] 01-06-2023 influenza, injectabl e, quadrivalent, preservative free Oleg Mccoy MD Work Phone: [facility] 01-06-2023 Pneumococcal Conjuga te PCV20, Pf (Prevnar 20) Oleg Mccoy MD Work Phone: [facility] 01-06-2023 influenza virus vacc ine, unspecified formulation Oleg Mccoy MD Work Phone: [facility] 12-23-2021 influenza, injectabl e, quadrivalent, preservative free Oleg Mccoy MD Work Phone: [facility] 12-23-2021 influenza virus vacc ine, unspecified formulation Delfina Mcneill HORACIO Juarez CNP Work Phone: [facility] 03-01-2021 Moderna SARS-CoV-2 Vaccination Oleg Mccoy MD Work Phone: [facility] 03-01-2021 Pfizer SARS-CoV-2 Vaccination Oleg Mccoy MD Work Phone: [facility] 12-27-2020 influenza, injectabl e, quadrivalent, preservative free Oleg Mccoy MD Work Phone: [facility] 05-06-2020 Moderna SARS-CoV-2 Vaccination Oleg Mccoy MD Work Phone: [facility] 05-06-2020 Pfizer SARS-CoV-2 Vaccination Oleg Mccoy MD Work Phone: [facility] 04-09-2020 Moderna SARS-CoV-2 Vaccination Oleg Mccoy MD Work Phone: [facility] 04-09-2020 Pfizer SARS-CoV-2 Vaccination Oleg Mccoy MD Work Phone: [facility] 01-14-2020 Influenza, injectabl e, Madin Elizabeth Canine Kidney, quadrivalent with preservative Oleg Mccoy MD Work Phone: [facility] 01-14-2020 Influenza, injectabl e, Madin Ward Canine Kidney, preservative free, quadrivalent Oleg Mccoy MD Work Phone: [facility] 01-03-2019 Influenza, injectabl e, Madin Elizabeth Canine Kidney, preservative free, quadrivalent Oleg Mccoy MD Work Phone: [facility] 01-29-2018 influenza virus vacc ine, unspecified formulation Oleg Mccoy MD Work Phone: [facility] 01-29-2018 influenza, injectabl e, quadrivalent, contains preservative Oleg Mccoy MD Work Phone: [facility] 04-28-2017 influenza, injectabl e, quadrivalent, preservative free Oleg Mccoy MD Work Phone: [facility] 10-13-2016 measles, mumps and r ubella virus vaccine Oleg Mccoy MD Work Phone: [facility] 10-13-2016 tetanus toxoid, redu edwin diphtheria toxoid, and acellular pertussis vaccine, adsorbed Oleg Mccoy MD Work Phone: [facility] 02-16-2009 novel Influenza-H1N1 -09, live virus for nasal administration Oleg Mccoy MD Work Phone: [facility] 05-27-2001 tetanus and diphther ia toxoids, adsorbed, preservative free, for adult use (5 Lf of tetanus toxoid and 2 Lf of diphtheria toxoid) Oleg Mccoy MD Work Phone: [facility] 05-27-2001 tetanus and diphther ia toxoids, not adsorbed, for adult use Oleg Mccoy MD Work Phone: [facility] Payers Date Payer Category Payer Medicare [id number] 2016 Medicaid 2016 Medicaid [id number] 2015 Medicare 2015 Medicare [id number] 1980 Unknown [id number] 1980 Unknown [id number] Private Health Insurance Social History Date Type Detail Facility Start: 11-08-2012 End: 01-06-2023 Tobacco smoking status MDIS Smokes tobacco daily [facility] Start: 11-08-2012 End: 10-16-2019 History of tobacco use Cigarette Smoker [facility] Start: 05-27-2022 End: 01-06-2023 Tobacco use and exposure Smokeless tobacco non-user [facility] Start: 05-27-2022 End: 01-13-2023 Alcohol intake Lifetime non-drinker (finding) [facility] Start: 1980 Sex Assigned At Not on file [facility] Start: 12-23-2021 End: 03-14-2023 Alcohol intake Ex-drinker (finding) [facility] Start: 10-13-2022 End: 01-06-2023 History of Social function [facility] Start: 10-13-2022 End: 01-06-2023 Tobacco use panel [facility] Start: 10-03-2022 End: 11-03-2022 Exposure to SARS-CoV-2 (event) Not sure [facility] History of tobacco use Passive smoker [facility] How often to you hav e a drink containing alcohol? Never [facility] How many standard dr inks containing alcohol do you have on a typical day? Patient does not drink [facility] Clinical Notes 05-27-2022 to 03-23-2023 Telephone Encounter - Tabitha Peoples MA - 03/23/2023 2:51 PM ESTTelephone Encounter - Tabitha Peoples MA - 03/23/2023 2:51 PM Linda Montilla MD - 01/31/2023 10:30 AM ESTPatient Instructions Note Date & Type Note Facility 03-23-2023 Telephone encounter Note Last appt: 01/06/23 Next appt: 07/11/23 [facility] 03-23-2023 Miscellaneous Notes Last appt: 01/06/23 Next appt: 07/11/23 documented in this encounter [facility] 01-31-2023 History of Present illness Narrative Images from the original note were not included. [facility] [address] [place] [address] Dept: [phone] Dept Chief Complaint Patient presents with Wrist Pain Right Subjective History of Present Illness: Biju Edyd is a 42 y.o. left hand dominant male who presents today for evaluation of right wrist pain. Location: generalized Onset: 1 months Injury: no Quality: sharp Mechanical symptoms: no Radiation of symptoms: yes - Into elbow. 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 Fall risk assessment: Less than 65, not applicable Objective Visit Vitals BP 120/74 Physical Exam: General: Alert, well appearing, no acute distress. Respiratory: Breathing comfortably on room air. No respiratory distress. Skin: Warm, dry, intact. No visible rashes or erythema overlying area of focused exam. Physical Exam Musculoskeletal: Right wrist: Tenderness present. No swelling or deformity. Normal range of motion. Comments: Mild tenderness base of thumb, mild tenderness first dorsal compartment, mild tenderness radiocarpal junction posterior. External Notes No pertinent interval updates Labs Lab Results Component Value Date HGBA1C 5.2 09/09/2022 Lab Results Component Value Date CREATININE 0.82 09/09/2022 Imaging Images reviewed with patient today I have personally reviewed the images pertinent to the appointment today Mild arthritis scaphoid triquetrium, mild arthritis radiocarpal. EMG/NCT N/A Procedure No procedures completed today Assessment Diagnosis Plan 1. Right wrist pain XR wrist 3+ views right [facility] Orthopedics Non-Surgical General supply request: DME Order for Upper extremity 2. Primary osteoarthritis of right wrist Plan Multiple minor etiologies throughout the wrist, will provide relative rest with a thumb spica splint and reevaluate if symptoms do not improve with this use of the splint at night and during active times throughout the day. Recheck as needed. No follow-ups on file. Mauro Montilla MD 01/31/2023 10:20 AM Please note that portions of this note may have been completed with voice recognition software. Documentation reviewed prior to signing but minor errors in windows infrastructure engineer may have occurred. documented in this encounter [facility] 01-24-2023 Telephone encounter Note Name of caller: Tomasa Contact phone number: [phone] Relationship to Patient: [facility] Provider: Dr Oleg Mccoy Practice: [facility] Chief Complaint/Reason for Call: Tomasa called requesting the a new prescription for the Tylenol 500 mg tablets. Tomasa caregiver is requesting a daily dosage be added and to discontinue the prn as needed dosage. Please send a new prescription order with daily dosage to [facility]. Please advise. Best time of day caller can be reached: any Patient advised that office/PCP has 24-48 business hours to return their call: No [facility] [facility] 01-24-2023 Miscellaneous Notes Name of caller: Tomasa Contact phone number: [phone] Relationship to Patient: [facility] Provider: Dr Oleg Mccoy Practice: [facility] Chief Complaint/Reason for Call: Tomasa called requesting the a new prescription for the Tylenol 500 mg tablets. Tomasa caregiver is requesting a daily dosage be added and to discontinue the prn as needed dosage. Please send a new prescription order with daily dosage to [facility]. Please advise. Best time of day caller can be reached: any Patient advised that office/PCP has 24-48 business hours to return their call: No documented in this encounter [facility] 01-23-2023 Telephone encounter Note Name of caller: Tomasa Contact phone number: [phone] Relationship to Patient: [facility] Provider: Dr Mccoy Practice: [facility] Chief Complaint/Reason for Call: Caller stated that patient takes 500 mg tylenol 2 times daily and they would like to get a Rx for this sent to [facility] pharmacy, could not find in med list. Please advise. Thank you. Best time of day caller can be reached: Any Patient advised that office/PCP has 24-48 business hours to return their call: No [facility] 01-23-2023 Miscellaneous Notes Name of caller: Tomasa Contact phone number: [phone] Relationship to Patient: [facility] Provider: Dr Mccoy Practice: [facility] Chief Complaint/Reason for Call: Caller stated that patient takes 500 mg tylenol 2 times daily and they would like to get a Rx for this sent to [facility] pharmacy, could not find in med list. Please advise. Thank you. Best time of day caller can be reached: Any Patient advised that office/PCP has 24-48 business hours to return their call: No Please send Rx Request Name of caller: Tomasa Contact phone number: [phone] Relationship to Patient: [facility] Provider: Dr. Mccoy Practice: [facility] Chief Complaint/Reason for Call: Per caller, they need an RX of Tylenol 500 MG's 2 tabs twice daily by mouth sent to [facility] for patient. Please advise. Best time of day caller can be reached: Any Patient advised that office/PCP has 24-48 business hours to return their call: Yes documented in this encounter [facility] 01-13-2023 Note HNO ID: [id number] Author: Anamaria Jaime RT(R) Service: Radiology Author Type: Technologist Type: Progress Notes Filed: 01/13/2023 1:12 PM Note Text: Radiology Service Progress Note PATIENT NAME: Biju Eddy DATE OF SERVICE: January 13, 2023 TIME: 1:03 PM PATIENT IDENTITY VERIFICATION COMPLETED USING TWO (2) IDENTIFIERS: Name and Date of confirmed by patient verbally. FALL SCREENING: Has the patient had 2 falls in the last year or 1 fall with injury or currently using an Ambulatory Assistive Device (Walker, Cane, Wheelchair, Crutches, etc.)? Yes, Patient High Risk for Falls What interventions were put in place to prevent falls during this visit? Instructed Patient to Call for Help if Needed, Offered Assistance with Transfers/Clothing, and Increased Observations by Caregivers PATIENT GENDER DATA: Male PATIENT RELEVANT IMPLANT DATA REVIEWED: Yes RADIOLOGY DEPARTMENT: General X-ray: Exam(s) Completed: Lower Extremity X-Ray(s): Ankle, Right PERIPHERAL IV DATA: Not applicable SIGNED BY: RT Kailyn(R) January 13, 2023 1:03 PM [facility] 01-13-2023 Note HNO ID: [id number] Author: Soraya Tineo APRN.[employer] Service: ? Author Type: Nurse Practitioner Type: Progress Notes Filed: 01/13/2023 1:50 PM Note Text: Subjective Patient came in with complaints of sharp stabbing pain in his right ankle. Patient says it started yesterday. Patient denies any injury to the area. Patient's had pain in this area before. Patient used to get injections for the pain. Patient has not gotten an injection in over a year. Patient denies any loss of feeling numbness or tingling. Patient does not have range of motion in the foot. This is patient's normal. The history is provided by the patient. No multi disciplined language analyst was used. Review of Systems Constitutional: Negative. Skin: Negative. Objective Physical Exam Constitutional: Appearance: Normal appearance. Pulmonary: Effort: Pulmonary effort is normal. Musculoskeletal: Legs: Comments: Pointed to the area marked above said this is where the pain occurs. Circulation intact. No discoloration noted. Neurological: Mental Status: He is alert. PAST MEDICAL HISTORY Diagnosis Date ADD (attention deficit disorder) Cerebral palsy (HCC) GERD (gastroesophageal reflux disease) Hyperlipidemia Hypertension Lumbar radicular pain Mood disorder (HCC) No past surgical history on file. ALLERGIES Bupropion and Ibuprofen MEDICATIONS baclofen (LIORESAL) 10 mg tablet Take by mouth. dexmethylphenidate (FOCALIN XR) 15 mg Capsule ER 1 capsule in the morning Orally Once a day methylphenidate LA (RITALIN LA) 20 mg 24 hr capsule 20 mg. RABEprazole (ACIPHEX) 20 mg tablet Take by mouth. lisinopril (ZESTRIL, PRINIVIL) 40 mg tablet Take 40 mg by mouth. CELECOXIB (CELEBREX ORAL) Take by mouth. HYDROCHLOROTHIAZIDE ORAL Take by mouth. Fiber cap Take by mouth. FLAXSEED OIL (OMEGA 3 ORAL) Take by mouth. LISINOPRIL ORAL Take by mouth. Ywxjetkzj-Urfb-Wlsgoagv-FA 9-0.4 mg tab tablet Take 1 tablet by mouth once daily. olanzapine (ZYPREXA) 2.5 mg ORAL Tab Take one(1) tablet daily at bedtime. olanzapine 5 mg ORAL Tab Take one(1) tablet daily in morning LISDEXAMFETAMINE DIMESYLATE (VYVANSE ORAL) Take by mouth. (Patient not taking: Reported on 01/13/2023) No family history on file. Social History Tobacco Use Smoking status: Every Day Types: Cigarettes Smokeless tobacco: Never Substance Use Topics Alcohol use: Never Drug use: Never ASSESSMENT/PLAN: 1. Pain - ICD9: 780.96, ICD10: R52 - XR ANKLE GENERAL 3V AP/LAT/OBL RIGHT * * * * Physician Interpretation * * * * EXAMINATION: XR ANKLE 3V AP/LAT/OBL RT CLINICAL HISTORY: Right ankle pain Technique: XR ANKLE 3V AP/LAT/OBL RT -- RIGHT with 3 views on 3 images Comparison: X-ray right ankle 05/27/2022 RESULT: No acute fracture or dislocation. Again noted is flattening of the talus and pes planus. IMPRESSION IMPRESSION: No acute osseous abnormality Draw Off Worker: HTU Transcribe Date/Time: Jan 13 2023 1:20P Dictated by : KEVAN RANGEL MD Patient was instructed to take Tylenol rest and ice for about a week or so see if the pain gets any better. If pain does not improve patient should follow-up with primary care. Patient and caregiver both okay with this care plan. Soraya Tineo APRN.[facility] 01-13-2023 History of Present illness Narrative Images from the original note were not included. Subjective Patient came in with complaints of sharp stabbing pain in his right ankle. Patient says it started yesterday. Patient denies any injury to the area. Patient's had pain in this area before. Patient used to get injections for the pain. Patient has not gotten an injection in over a year. Patient denies any loss of feeling numbness or tingling. Patient does not have range of motion in the foot. This is patient's normal. The history is provided by the patient. No multi disciplined language analyst was used. Review of Systems Constitutional: Negative. Skin: Negative. Objective Physical Exam Constitutional: Appearance: Normal appearance. Pulmonary: Effort: Pulmonary effort is normal. Musculoskeletal: Legs: Comments: Pointed to the area marked above said this is where the pain occurs. Circulation intact. No discoloration noted. Neurological: Mental Status: He is alert. PAST MEDICAL HISTORY Diagnosis Date ADD (attention deficit disorder) Cerebral palsy (HCC) GERD (gastroesophageal reflux disease) Hyperlipidemia Hypertension Lumbar radicular pain Mood disorder (HCC) No past surgical history on file. ALLERGIES Bupropion and Ibuprofen MEDICATIONS baclofen (LIORESAL) 10 mg tablet Take by mouth. dexmethylphenidate (FOCALIN XR) 15 mg Capsule ER 1 capsule in the morning Orally Once a day methylphenidate LA (RITALIN LA) 20 mg 24 hr capsule 20 mg. RABEprazole (ACIPHEX) 20 mg tablet Take by mouth. lisinopril (ZESTRIL, PRINIVIL) 40 mg tablet Take 40 mg by mouth. CELECOXIB (CELEBREX ORAL) Take by mouth. HYDROCHLOROTHIAZIDE ORAL Take by mouth. Fiber cap Take by mouth. FLAXSEED OIL (OMEGA 3 ORAL) Take by mouth. LISINOPRIL ORAL Take by mouth. Lbedjaacj-Reek-Lyuitdki-FA 9-0.4 mg tab tablet Take 1 tablet by mouth once daily. olanzapine (ZYPREXA) 2.5 mg ORAL Tab Take one(1) tablet daily at bedtime. olanzapine 5 mg ORAL Tab Take one(1) tablet daily in morning LISDEXAMFETAMINE DIMESYLATE (VYVANSE ORAL) Take by mouth. (Patient not taking: Reported on 01/13/2023) No family history on file. Social History Tobacco Use Smoking status: Every Day Types: Cigarettes Smokeless tobacco: Never Substance Use Topics Alcohol use: Never Drug use: Never ASSESSMENT/PLAN: 1. Pain - ICD9: 780.96, ICD10: R52 - XR ANKLE GENERAL 3V AP/LAT/OBL RIGHT * * * * Physician Interpretation * * * * EXAMINATION: XR ANKLE 3V AP/LAT/OBL RT CLINICAL HISTORY: Right ankle pain Technique: XR ANKLE 3V AP/LAT/OBL RT -- RIGHT with 3 views on 3 images Comparison: X-ray right ankle 05/27/2022 RESULT: No acute fracture or dislocation. Again noted is flattening of the talus and pes planus. IMPRESSION IMPRESSION: No acute osseous abnormality Draw Off Worker: THU Transcribe Date/Time: Jan 13 2023 1:20P Dictated by : KEVAN RANGEL MD Patient was instructed to take Tylenol rest and ice for about a week or so see if the pain gets any better. If pain does not improve patient should follow-up with primary care. Patient and caregiver both okay with this care plan. Soraya Tineo APRN.[employer] documented in this encounter [facility] 01-12-2023 Telephone encounter Note Called Ni and relayed the message. She said they will contact us if they need anything. [facility] 01-12-2023 Miscellaneous Notes Called Ni and relayed the message. She said they will contact us if they need anything. Noted let us know if needs anything if injury Name of caller: Ni Contact phone number: [phone] Relationship to Patient: [facility] Provider: Practice: [facility] Chief Complaint/Reason for Call: Ni calling from [facility] and states patient had a fall this morning, she watched in happen. No injuries reported Best time of day caller can be reached: any Patient advised that office/PCP has 24-48 business hours to return their call: no documented in this encounter [facility] 01-12-2023 Telephone encounter Note Noted let us know if needs anything if injury [facility] 01-12-2023 Telephone encounter Note Name of caller: Ni Contact phone number: [phone] Relationship to Patient: [facility] Provider: Practice: [facility] Chief Complaint/Reason for Call: Ni calling from [facility] and states patient had a fall this morning, she watched in happen. No injuries reported Best time of day caller can be reached: any Patient advised that office/PCP has 24-48 business hours to return their call: no [facility] 01-06-2023 History of Present illness Narrative Images from the original note were not included. [facility] [place] [facility] [address] [place] [facility] [address] Dept: [phone] Dept Routine general medical examination at health care facility Encouraged smoking cessation Follows with psych Same hydrochlorothiazide and lisinopril Right wrist pain - [facility] Non-Surgical; Future Smoking not controlled -encouraged cessation HTN Controlled -lisnopril 40 and hydrochlorothiazide 25 mg daily Needs flu shot - Flu vaccine (IIV4) greater than or equal to 3 years old, preservative free Need for vaccination for pneumococcus - Pneumococcal conjugate vaccine 20-valent IM Chief Complaint Patient presents with Medicare Annual Wellness Visit Subsequent Pt would like to discuss right wrist, has been having trouble grabbing things. HPI AWV. Smoking. Still smoking. Declines quitting. Hypertension: hydrochlorothiazide 25 mg daily, lisinopril 40 mg daily. Home blood pressure monitoring: No. He is adherent to a low sodium diet. Patient denies chest pain, shortness of breath, headache, lightheadedness, blurred vision, peripheral edema, palpitations, dry cough and fatigue. Antihypertensive medication side effects: no medication side effects noted. Use of agents associated with hypertension: NSAIDS. HLD. Diet is fair. No meds x omega 3 fatty acids CP with spastic diplegia. uses walker now Normally from noncompliance with use of walker chronically. No falls. Pain minimal. Baclofen prn helps Mood disorder with ADD. More stress as of late. Zyprexa qhs works well. Focalin Rx by psych helpful. GERD. Controlled symptoms on PPI. I have reviewed and reconciled the medication list with the patient today. Current Outpatient Medications Medication Sig Dispense Refill baclofen (Lioresal) 10 MG tablet celecoxib (CeleBREX) 100 MG capsule 1 capsule in the morning and 1 capsule in the evening. dexmethylphenidate XR (Focalin XR) 15 MG 24 hr capsule Every 24 hours. hydroCHLOROthiazide (HYDRODiuril) 25 MG tablet TAKE 1 TABLET BY MOUTH ONCE EVERY DAY (8AM) 28 tablet 10 lisinopril 40 MG tablet Every 24 hours. Multiple Vitamins-Minerals (CertaVite/Antioxidants) tablet TAKE 1 TABLET BY MOUTH ONCE EVERY DAY (8AM) 28 tablet 10 OLANZapine (ZyPREXA) 5 MG tablet RABEprazole (Aciphex) 20 MG EC tablet TAKE 1 TABLET BY MOUTH ONCE EVERY DAY (8AM) 28 tablet 10 nicotine polacrilex (Commit) 2 MG lozenge Dissolve 1 lozenge (2 mg) in the mouth every 2 hours as needed for smoking cessation. 45 lozenge 2 OLANZapine (ZyPREXA) 2.5 MG tablet No current facility-administered medications for this visit. Also reviewed during this visit: Allergies Meds Problems The following health maintenance schedule was reviewed with the patient and provided in printed form in the after visit summary: Health Maintenance Topic Date Due COVID-19 Vaccine (6 - Pfizer series) 04/26/2021 Influenza Vaccine (1) 11/25/2022 Depression Screening 01/07/2024 Diabetes Screening 09/09/2025 DTaP/Tdap/Td Vaccines (2 - Td or Tdap) 10/13/2026 Lipid Panel 09/10/2027 Zoster Vaccines (1 of 2) 10/14/2029 MMR Vaccines Completed Pneumococcal Vaccine: Pediatrics (0 to 5 Years) and At-Risk Patients (6 to 64 Years) Completed HIV Screening Completed Hepatitis C Screening Completed HIB Vaccines Aged Out IPV Vaccines Aged Out Hepatitis A Vaccines Aged Out Meningococcal Vaccine Aged Out Rotavirus Vaccines Aged Out HPV Vaccines Aged Out Hepatitis B Vaccines Discontinued List of current healthcare providers: Patient Care Team: Oleg Mccoy MD as PCP - General Orders Placed This Encounter Procedures Flu vaccine (IIV4) greater than or equal to 3 years old, preservative free Pneumococcal conjugate vaccine 20-valent IM [facility] Non-Surgical Standing Status: Future Standing Expiration Date: 07/08/2023 Referral Priority: Routine Referral Type: Consultation Referral Reason: Specialty Services Required Requested Specialty: Sports Medicine Number of Visits Requested: 1 Subjective : Review of Systems Constitutional: Negative for appetite change, fatigue and unexpected weight change. Eyes: Negative for pain and visual disturbance. Respiratory: Negative for apnea, cough, chest tightness and shortness of breath. Cardiovascular: Negative for chest pain, palpitations and leg swelling. Gastrointestinal: Negative for abdominal distention, abdominal pain, anal bleeding, blood in stool, constipation, diarrhea, nausea, rectal pain and vomiting. Genitourinary: Negative for dysuria, frequency and hematuria. Musculoskeletal: Positive for arthralgias (right wrist pain for few weeks. no injury. 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 No numbness or weakness). Negative for back pain and gait problem. Skin: Negative for rash. Neurological: Negative for dizziness and headaches. Hematological: Negative for adenopathy. Does not bruise/bleed easily. Psychiatric/Behavioral: Negative for dysphoric mood and sleep disturbance. The patient is not nervous/anxious. Physical Exam Nursing note reviewed. Constitutional: Appearance: Normal appearance. Cardiovascular: Rate and Rhythm: Normal rate and regular rhythm. Pulmonary: Effort: Pulmonary effort is normal. Breath sounds: Normal breath sounds. Comments: Normal speaking effort Musculoskeletal: General: Deformity (braced LEs.) present. Right wrist: Tenderness present. No swelling, deformity, lacerations, bony tenderness, snuff box tenderness or crepitus. Normal range of motion. Normal pulse. Right lower leg: No edema. Left lower leg: No edema. Neurological: Mental Status: He is alert. Psychiatric: Mood and Affect: Mood normal. Behavior: Behavior normal. Thought Content: Thought content normal. Judgment: Judgment normal. Health Risk Assessment: General: General In general, how would you say your health is?: Very good In the past 7 days, have you experienced any of the following: New or Increased Pain, New or Increased Fatigue, Loneliness, Social Isolation, Stress or Anger?: (!) Yes Select all that apply: (!) New or Increased Pain Do you get the social and emotional suppport you need?: Yes Interventions: Pain Issues: hands Health Habits/Nutrition: Health Habits / Nutrition On average, how many days per week do you engage in moderate to strenous exercise (like a brisk walk)?: (!) 0 days On average, how man minutes do you engage in exercise at this level?: (!) 0 min Have you lost any weight without trying in the past 3 months? : No Have you seen the dentist within the past year?: Yes Interventions: Inadequate physical activity: encouarged activity Hearing/ Vision: Hearing / Vision Do you or your family notice any trouble with your hearing that hasn't been managed with hearing aids?: No Do you have difficulty driving, watching TV, or doing any of your daily activities because of your eyesight?: No Have you had an eye exam within the past year?: Yes No results found. Safety: Safety Do you have a working smoke detector?: Yes Do you have any tripping hazards - loose or unsecured carpets or rugs?: No Do you have any tripping hazards - clutter in doorways, halls, or stairs?: No Do you have either shower bars, grab bars, non-slip mats or non-slip surfaces in your shower or bathtub? : Yes Do all your stairways have a railing or banister? : Yes Do you fasten your seatbelt when you are in a car?: Yes ADL: ADL In the past 7 days, did you need help from others to perform any of the following everyday activities: Eating, dressing, grooming,bathing, toileting, or walking / balance? : No In the past 7 days, did you need help from others to take care of any of the following: laundry, housekeeping, banking / finances,shopping, telephone use, food preparation, transportation, or taking medications? : No Living Will: Cognitive: Cognitive Screening: Mini-Cog Clock Drawing Test (CDT): 2 Words Recalled: 0 Total Score: 2 Total Score Interpretation: Abnormal Mini-Cog Interventions: Fall Risk: Fall Risk One or more falls in the last year:: Yes Advised to use a cane or walker to get around safely:: No Feels unsteady when walking:: Yes Steadies self on furniture while walking at home:: Yes Worried about falling:: Yes Interventions: Depression Screening: Over the past 2 weeks, how often have you been bothered by any of the following problems? Little interest or pleasure in doing things: Not at all Feeling down, depressed, or hopeless: Not at all Patient Health Questionnaire-2 Score: 0 [place] Suicide Severity Rating Scale (Screener/Recent Self-Report) 1. Wish to be (Past 1 Month): No 2. Non-Specific Active Suicidal Thoughts (Past 1 Month): No 6. Suicidal Behavior (Lifetime): No Calculated C-SSRS Risk Score (Lifetime/Recent): No Risk Indicated Interventions: Tobacco Use: Social History Tobacco Use Smoking Status Every Day Packs/day: 1 Types: Cigarettes Start date: 11/08/2012 Last attempt to quit: 10/16/2019 Years since quittin.2 Passive exposure: Current Smokeless Tobacco Never Alcohol Use: Audit Alcohol Screening Q1: How often do you have a drink containing alcohol?: Never Q2: How many drinks containing alcohol do you have on a typical day when you are drinking?: Patient does not drink Q3: How often do you have six or more drinks on one occasion?: Never Audit-C Score: 0 Skip to questions 9-10?: 1 Objective : BP 138/84 (BP Location: Right arm, Patient Position: Sitting, BP Cuff Size: Large adult) Pulse 77 Ht 5' 7.5 (1.715 m) Wt 186 lb (84.4 kg) SpO2 95% BMI 28.70 kg/m No results found. The patient, Biju Eddy is a 42 y.o. male identity was verified by name and date of . Influenza Vaccine Consent, Signed and scanned into patients chart Screening questions for injectable influenza vaccine answered and reviewed with patient prior to administering. (See scanned influenza consent form) Injection of Flulaval was administered per Oleg Mccoy MD Orders: 01/06/2023 Injection site: Right deltoid FOR[facility] NAMED [facility]: [id number] LOT: [id number] Exp: 09/24/2023 The patient tolerated the injection well and without incident. The patient was discharged home with education. (Vaccine Information Statement) The patient, Biju Eddy is a 42 y.o. male identity was verified by name and date of . Injection of Prevnar 20 was administered per Delaney Mccoy's Orders: 01/06/2023 Injection site: Left Deltoid Medication : Pneumococcal NDC:3704-5347-15 LOT:[id number] Exp: 12/25/2023 The patient tolerated the injection well and without incident. The patient was discharged home with education. (After Visit Summary) documented in this encounter [facility] 01-06-2023 Instructions Oleg Mccoy MD - 01/06/2023 11:00 AM EDT Personalized Preventative Plan for Biju Eddy - 01/06/2023 Medicare offers a range of preventative health benefits. Some of the tests and screenings are paid in full while others may be subject to a deductible, co-insurance, and / or copay. Some of these benefits include a comprehensive review of your medical history including lifestyle, illnesses that may run in your family, and various assessments and screenings as appropriate. After reviewing your medical record and screening and assessments performed today, your provider may have ordered immunizations, labs, imaging, and / or referrals for you. A list of these orders (if applicable) as well as your Preventative Care list are included within your After Visit Summary for your review. Other Preventative Recommendations: A preventive eye exam by an receivables specialist is recommended every 1-2 years to screen for glaucoma, cataracts, macular degeneration, and other eye disorders. A preventive dental visit is recommended every 6 months. Try to get at least 150 minutes of exercise per week or 10,000 steps per day on a pedometer. You need 1200-1500mg of calcium and 4413-3554 international units of vitamin D per day. It is possible to meet your calcium requirement with diet alone, but a vitamin D supplement is usually necessary to meet this goal. When exposed to the sun, use a sunscreen that protects against both UVA and UVB radiation with an SPF of 30 or greater. Reapply every 2-3 hours or after sweating, drying off with a towel, or swimming. Always wear a seat belt when traveling in a car. Always wear a helmet when riding a bicycle or a motorcycle The following attachments cannot be sent through Care Everywhere.Smoking: Not Just Harmful to Your Lungs and Heart (Liberian)Quitting Smoking (Liberian)documented in this encounter [facility] 12-28-2022 Telephone encounter Note Please send Rx Request [facility] 12-27-2022 Telephone encounter Note Name of caller: Tomasa Contact phone number: [phone] Relationship to Patient: [facility] Provider: Dr. Mccoy Practice: [place] Chief Complaint/Reason for Call: Per caller, they need an RX of Tylenol 500 MG's 2 tabs twice daily by mouth sent to [facility] for patient. Please advise. 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 Mccoy Practice: [place] Chief Complaint/Reason for Call: Please send RX for nicotine polacrilex (Commit) 2 MG lozenge to [facility] on file. Please advise. Thank you. 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 Mccoy Practice: [facility] Chief Complaint/Reason for Call: Please send RX for nicotine polacrilex (Commit) 2 MG lozenge to [facility] on file. Please advise. Thank you. Best time of day caller can be reached: Any Patient advised that office/PCP has 24-48 business hours to return their call: Yes documented in this encounter [facility] 11-03-2022 History of Present illness Narrative Images from the original note were not included. [facility] [address] [place] [facility] [address] Visit type: Established Patient Reason for Visit: Rash (Pt states he has a spot on the back of his left leg. Pt noticed it a few weeks ago and they put hydrocortisone cream on it but it didn't help. Pt denies pain but it itches. ) Assessment and Plan 1. Pruritic rash Get AFO looked at - clotrimazole-betamethasone (Lotrisone) cream; Apply topically 2 times daily. Dispense: 15 g; Refill: 0 2. Smoker Not controlled Trial of nicotine lozenges. - nicotine polacrilex (Commit) 2 MG lozenge; Dissolve 1 lozenge (2 mg) in the mouth every 2 hours as needed for smoking cessation. Dispense: 45 lozenge; Refill: 2 Subjective HPI Few week hx of itchy rash left calf. No pain or ulcer. He wears AFO. Has not had them adjusted lately. Smoker. Would like to quit. Review of Systems As above Allergies Allergen Reactions Bupropion Other reaction(s): Other (See Comments), Other: See Comments Pt had phsycological anger issues with this medication. Pt had phsycological anger issues with this medication. Other reaction(s): Other: See Comments Ibuprofen Other reaction(s): Other (See Comments), Other: See Comments Can not take with current meds Can not take with current meds Other reaction(s): Unknown Other reaction(s): NEEDS FOLLOW-UP, Other: See Comments Outpatient Medications Prior to Visit Medication Sig Dispense Refill baclofen (Lioresal) 10 MG tablet celecoxib (CeleBREX) 100 MG capsule 1 capsule in the morning and 1 capsule in the evening. dexmethylphenidate XR (Focalin XR) 15 MG 24 hr capsule Every 24 hours. hydroCHLOROthiazide (HYDRODiuril) 25 MG tablet TAKE 1 TABLET BY MOUTH ONCE EVERY DAY (8AM) 28 tablet 10 lisinopril 40 MG tablet Every 24 hours. Multiple Vitamins-Minerals (CertaVite/Antioxidants) tablet TAKE 1 TABLET BY MOUTH ONCE EVERY DAY (8AM) 28 tablet 10 OLANZapine (ZyPREXA) 5 MG tablet RABEprazole (Aciphex) 20 MG EC tablet TAKE 1 TABLET BY MOUTH ONCE EVERY DAY (8AM) 28 tablet 10 lisdexamfetamine (Vyvanse) 70 MG capsule Every 24 hours. No facility-administered medications prior to visit. Past Medical History: Diagnosis Date Attention deficit disorder without mention of hyperactivity Cerebral palsy (HCC) Essential hypertension, benign GERD (gastroesophageal reflux disease) 04/09/2015 Hyperlipidemia Lumbar radiculopathy 05/09/2019 Mood disorder (HCC) Primary localized osteoarthrosis, unspecified site Social History Socioeconomic History Marital status: Single Tobacco Use Smoking status: Every Day Packs/day: 1.00 Types: Cigarettes Start date: 11/08/2012 Last attempt to quit: 10/16/2019 Years since quittin.0 Smokeless tobacco: Never Vaping Use Vaping Use: Never used Substance and Sexual Activity Alcohol use: Not Currently Drug use: No Past Surgical History: Procedure Laterality Date EYE SURGERY FINGER SURGERY thumb right hand Past Surgical History: Procedure Laterality Date EYE SURGERY FINGER SURGERY thumb right hand Family History Adopted: Yes Problem Relation Name Age of Onset No Known Problems Brother No Known Problems Mother pt adopted No Known Problems Brother No Known Problems Father No Known Problems Brother No Known Problems Brother No Known Problems Brother Objective BP 136/81 (BP Location: Left arm, Patient Position: Sitting, BP Cuff Size: Adult) Pulse 82 Ht 5' 7.5 (1.715 m) Wt 180 lb (81.6 kg) SpO2 95% BMI 27.78 kg/m Patient Weight 11/03/22 180 lb (81.6 kg) 10/13/22 171 lb (77.6 kg) 07/01/22 172 lb (78 kg) Physical Exam Nursing note reviewed. Constitutional: Appearance: Normal appearance. Pulmonary: Comments: Normal speaking effort Skin: Findings: Rash (4x3 cm mac pap little red scaled rash left calf) present. Neurological: Mental Status: He is alert. Psychiatric: Mood and Affect: Mood normal. Behavior: Behavior normal. Thought Content: Thought content normal. Judgment: Judgment normal. Chart Clean Up: Medications Discontinued During This Encounter Medication Reason lisdexamfetamine (Vyvanse) 70 MG capsule Therapy completed Oleg Mccoy MD 11/03/2022 10:02 AM documented in this encounter [facility] 11-01-2022 Telephone encounter Note S: [facility]) Becky called the clinical access center with complaint of red spot on the back of his left calf. B: Ongoing started week and half a go. Caller is not with the patient. A: Patient c/o Thinks his AFO's might be causing this, insert in his shoes. Red spot to back of left calf. 3 inches round . Pain 7/10 per aide not with the patient.. Patient is at work shop. Denies fever. She would like him to see Dr. Mccoy. R: Appointment scheduled 11/03/[address] Mccoy. Insurance verified.Home Care advice given. Patient instructed to call back with worsening symptoms, concerns or questions. Patient verbalized understanding. Message to the office for review by the provider and needs recommendation from Provider for treatment going forward. Reason for Disposition Patient wants to be seen Protocols used: Skin Lesion - Moles or [id number] [facility] 11-01-2022 Miscellaneous Notes S: [facility] ([facility]) Becky called the clinical access center with complaint of red spot on the back of his left calf. B: Ongoing started week and half a go. Caller is not with the patient. A: Patient c/o Thinks his AFO's might be causing this, insert in his shoes. Red spot to back of left calf. 3 inches round . Pain 7/10 per aide not with the patient.. Patient is at work shop. Denies fever. She would like him to see Dr. Mccoy. R: Appointment scheduled 11/03/[address] Mccoy. Insurance verified.Home Care advice given. Patient instructed to call back with worsening symptoms, concerns or questions. Patient verbalized understanding. Message to the office for review by the provider and needs recommendation from Provider for treatment going forward. Reason for Disposition Patient wants to be seen Protocols used: Skin Lesion - Moles or [id number] documented in this encounter [facility] 10-31-2022 Telephone encounter Note Som from [facility] in [place] called, said he spoke to pt Biju about pain in his right knee after starting PT. Biju does take Celebrex and Tylenol which helps but would like a topical for knee pain as well as all-over body pain. Is specifically asking for a generalized order for sore muscles/joints for Bengay so he can use it on multiples areas, not just his knee. Som is requesting this order be sent to [facility]. He would also like the order faxed to [phone]. Thank you. [facility] 10-31-2022 Miscellaneous Notes Som from [facility] in [place] called, said he spoke to pt Biju about pain in his right knee after starting PT. Biju does take Celebrex and Tylenol which helps but would like a topical for knee pain as well as all-over body pain. Is specifically asking for a generalized order for sore muscles/joints for Bengay so he can use it on multiples areas, not just his knee. Som is requesting this order be sent to [facility]. He would also like the order faxed to [phone]. Thank you. documented in this encounter [facility] 10-13-2022 History of Present illness Narrative Images from the original note were not included. [facility] [address] [place] [facility] [address] Dept: [phone] Dept Visit Date: 10/13/22 HPI: Biju Eddy is a 41 y.o. male who presents today for: Chief Complaint Patient presents with Follow-up Pt here to follow up after being seen in the ER HPI Fall, seen at [place] ED on 10/06/22. Reportedly knees gave out and fell to ground. Right knee pain-had xray no fracture or dislocation. Treated for contusion with RICE. Routine follow up today. Has CP recurrent falls. Unstable gait. Uses walker most of the time but is known to be non compliant in this. Uses 2 wheeled walker as 4 wheeled Rolator causes worse instability per caregiver today. The knee continues to have pain, mostly posterior. No edema. Difficulty with full extension and flexion although this is his weaker leg anyway so uncertain as to his baseline. Has been resting and elevated the joint. Some ice. Tylenol with moderate relief. Current Outpatient Medications Medication Sig Dispense Refill celecoxib (CeleBREX) 100 MG capsule 1 capsule in the morning and 1 capsule in the evening. dexmethylphenidate XR (Focalin XR) 15 MG 24 hr capsule Every 24 hours. hydroCHLOROthiazide (HYDRODiuril) 25 MG tablet TAKE 1 TABLET BY MOUTH ONCE EVERY DAY (8AM) 28 tablet 10 lisdexamfetamine (Vyvanse) 70 MG capsule Every 24 hours. lisinopril 40 MG tablet Every 24 hours. Multiple Vitamins-Minerals (CertaVite/Antioxidants) tablet TAKE 1 TABLET BY MOUTH ONCE EVERY DAY (8AM) 28 tablet 10 OLANZapine (ZyPREXA) 5 MG tablet RABEprazole (Aciphex) 20 MG EC tablet TAKE 1 TABLET BY MOUTH ONCE EVERY DAY (8AM) 28 tablet 10 No current facility-administered medications for this visit. Allergies Allergen Reactions Bupropion Other reaction(s): Other (See Comments), Other: See Comments Pt had phsycological anger issues with this medication. Pt had phsycological anger issues with this medication. Other reaction(s): Other: See Comments Ibuprofen Other reaction(s): Other (See Comments), Other: See Comments Can not take with current meds Can not take with current meds Other reaction(s): Unknown Other reaction(s): NEEDS FOLLOW-UP, Other: See Comments Past Medical History: Diagnosis Date Attention deficit disorder without mention of hyperactivity Cerebral palsy (HCC) Essential hypertension, benign GERD (gastroesophageal reflux disease) 04/09/2015 Hyperlipidemia Lumbar radiculopathy 05/09/2019 Mood disorder (HCC) Primary localized osteoarthrosis, unspecified site Social History Tobacco Use Smoking status: Every Day Packs/day: 1.00 Types: Cigarettes Start date: 11/08/2012 Last attempt to quit: 10/16/2019 Years since quittin.9 Smokeless tobacco: Never Substance Use Topics Alcohol use: Not Currently Subjective: Review of Systems Musculoskeletal: Positive for arthralgias and gait problem. Negative for joint swelling. Objective: BP 133/89 (BP Location: Right arm, Patient Position: Sitting, BP Cuff Size: Adult) Pulse 75 Ht 5' 7 (1.702 m) Wt 171 lb (77.6 kg) SpO2 97% BMI 26.78 kg/m Physical Exam Vitals and nursing note reviewed. Constitutional: General: He is not in acute distress. Appearance: Normal appearance. He is not ill-appearing or toxic-appearing. Pulmonary: Effort: Pulmonary effort is normal. Musculoskeletal: Left knee: No swelling, deformity, effusion, erythema or ecchymosis. Decreased range of motion. No tenderness. No medial joint line, lateral joint line or patellar tendon tenderness. No ACL laxity or PCL laxity.Normal alignment and normal patellar mobility. Neurological: Mental Status: He is alert. Gait: Gait abnormal. Assessment: Diagnosis Plan 1. Recurrent falls 2. Knee strain, right, sequela Plan: Biju was seen today for follow-up. Diagnoses and all orders for this visit: Recurrent falls (Primary) Discussed fall prevention, use walker. Take time. It was reviewed that a rolator walker would actually not be beneficial for him. Continue use of 2 wheeled walker. Knee strain, right, sequela Acute s/p fall. Continue RICE. Activity as tolerated. Suspect gradual improvement over next 4-6 weeks. Follow up if symptoms worsen or fail to improve, for Next scheduled follow-up. Goals None 'ZULEMA Mendez 10/13/2022 12:35 PM documented in this encounter [facility] 06-20-2022 Telephone encounter Note Name of caller: Jaye Romano Contact phone number: [phone] Relationship to Patient: [facility] Provider: Darius Practice: [facility] Chief Complaint/Reason for Call: Jaye Romano calling from [facility] in regard to pt. States pt fell yesterday and has a 4 inch abrasion on his back. They are treating it with antibiotics and keeping an eye on it. FYI Best time of day caller can be reached: any Patient advised that office/PCP has 24-48 business hours to return their call: No [facility] 06-20-2022 Miscellaneous Notes Name of caller: Jaye Romano Contact phone number: [phone] Relationship to Patient: [facility] Provider: Darius Practice: [facility] Chief Complaint/Reason for Call: Jaye Romano calling from [facility] in regard to pt. States pt fell yesterday and has a 4 inch abrasion on his back. They are treating it with antibiotics and keeping an eye on it. FYI Best time of day caller can be reached: any Patient advised that office/PCP has 24-48 business hours to return their call: No documented in this encounter [facility] 05-27-2022 Note HNO ID: [id number] Author: Anamaria Jaime RT(R) Service: Radiology Author Type: Technologist Type: Progress Notes Filed: 05/27/2022 11:07 AM Note Text: Radiology Service Progress Note PATIENT NAME: Biju Eddy DATE OF SERVICE: May 27, 2022 TIME: 10:57 AM PATIENT IDENTITY VERIFICATION COMPLETED USING TWO (2) IDENTIFIERS: Name and Date of confirmed by patient verbally. FALL SCREENING: Has the patient had 2 falls in the last year or 1 fall with injury or currently using an Ambulatory Assistive Device (Walker, Cane, Wheelchair, Crutches, etc.)? Yes, Patient High Risk for Falls What interventions were put in place to prevent falls during this visit? Offered Assistance with Transfers/Clothing, Instructed Patient to Remain Seated (Not on Exam Table) Until Exam, and Increased Observations by Caregivers PATIENT GENDER DATA: Male PATIENT RELEVANT IMPLANT DATA REVIEWED: Yes RADIOLOGY DEPARTMENT: General X-ray: Exam(s) Completed: Lower Extremity X-Ray(s): Ankle, Right PERIPHERAL IV DATA: Not applicable SIGNED BY: Anamaria Jaime, RT(R) May 27, 2022 10:57 AM [facility] 05-27-2022 Note HNO ID: [id number] Author: Williams Jason MD Service: ? Author Type: Physician Type: Progress Notes Filed: 05/27/2022 11:38 AM Note Text: Patient presents with: Fall: Pt presented with caregiver [facility], reported fall x1 day prior (RT) ankle injury. HPI: Ankle pain: Duration: fell yesterday at [employer], foot got caught under a cabinet Location: right ankle Character: aching and sharp Aggravating: walking (uses walker at baseline, unable since injury) Relieving: wheelchair Pain relievers: Tylenol Associated: Chronic CP and ankle deformity Pertinent negatives: PAST MEDICAL HISTORY Diagnosis Date ADD (attention deficit disorder) Cerebral palsy (HCC) GERD (gastroesophageal reflux disease) Hyperlipidemia Hypertension Lumbar radicular pain Mood disorder (HCC) MEDICATIONS: baclofen (LIORESAL) 10 mg tablet Take by mouth. dexmethylphenidate (FOCALIN XR) 15 mg Capsule ER 1 capsule in the morning Orally Once a day methylphenidate LA (RITALIN LA) 20 mg 24 hr capsule 20 mg. RABEprazole (ACIPHEX) 20 mg tablet Take by mouth. lisinopril (ZESTRIL, PRINIVIL) 40 mg tablet Take 40 mg by mouth. CELECOXIB (CELEBREX ORAL) Take by mouth. HYDROCHLOROTHIAZIDE ORAL Take by mouth. Fiber cap Take by mouth. FLAXSEED OIL (OMEGA 3 ORAL) Take by mouth. LISINOPRIL ORAL Take by mouth. Sfravgnay-Ujkj-Pqdfhvch-FA 9-0.4 mg tab tablet Take 1 tablet by mouth once daily. olanzapine (ZYPREXA) 2.5 mg ORAL Tab Take one(1) tablet daily at bedtime. olanzapine 5 mg ORAL Tab Take one(1) tablet daily in morning LISDEXAMFETAMINE DIMESYLATE (VYVANSE ORAL) Take by mouth. (Patient not taking: Reported on 12/28/2021) ALLERGIES: ALLERGIES Allergen Reactions Bupropion Other: See Comments Pt had phsycological anger issues with this medication. Ibuprofen Other: See Comments Can not take with current meds VITALS: BP 128/78 Pulse 71 Temp 36.6 ?C (97.9 ?F) (Tympanic) Resp 16 SpO2 97% PHYSICAL EXAM: GEN: pleasant, no acute distress, alert. Sitting in wheelchair. Accompanied by senior care caregiver. ANKLE: right . Swelling not present. No erythema, no ecchymosis. Chronic pes planus/valgus deformity. Range of motion: inversion - non-painful, eversion - non-painful, anterior drawer- non-painful. Palpation: Medial malleolus non-painful, lateral malleolus non-painful, Dorsal proximal midfoot - identified as location of pain but nontender to palpation, proximal 5th metatarsal non-painful, posterior calcaneus non-painful ASSESSMENT/PLAN: 1. Acute right ankle pain - ICD9: 719.47, 338.19, ICD10: M25.571 - XR ANKLE GENERAL 3V AP/LAT/OBL RIGHT - no acute finding. As needed analgesia. He may use walker or wheelchair. Advance activity as tolerated. [employer] paperwork filled out to return on Monday. Williams Jason MD [facility] 05-27-2022 History of Present illness Narrative Patient presents with: Fall: Pt presented with caregiver [facility], reported fall x1 day prior (RT) ankle injury. HPI: Ankle pain: Duration: fell yesterday at [employer], foot got caught under a cabinet Location: right ankle Character: aching and sharp Aggravating: walking (uses walker at baseline, unable since injury) Relieving: wheelchair Pain relievers: Tylenol Associated: Chronic CP and ankle deformity Pertinent negatives: PAST MEDICAL HISTORY Diagnosis Date ADD (attention deficit disorder) Cerebral palsy (HCC) GERD (gastroesophageal reflux disease) Hyperlipidemia Hypertension Lumbar radicular pain Mood disorder ([facility]) MEDICATIONS: baclofen (LIORESAL) 10 mg tablet Take by mouth. dexmethylphenidate (FOCALIN XR) 15 mg Capsule ER 1 capsule in the morning Orally Once a day methylphenidate LA (RITALIN LA) 20 mg 24 hr capsule 20 mg. RABEprazole (ACIPHEX) 20 mg tablet Take by mouth. lisinopril (ZESTRIL, PRINIVIL) 40 mg tablet Take 40 mg by mouth. CELECOXIB (CELEBREX ORAL) Take by mouth. HYDROCHLOROTHIAZIDE ORAL Take by mouth. Fiber cap Take by mouth. FLAXSEED OIL (OMEGA 3 ORAL) Take by mouth. LISINOPRIL ORAL Take by mouth. Fxbbescty-Otml-Wbukabrr-FA 9-0.4 mg tab tablet Take 1 tablet by mouth once daily. olanzapine (ZYPREXA) 2.5 mg ORAL Tab Take one(1) tablet daily at bedtime. olanzapine 5 mg ORAL Tab Take one(1) tablet daily in morning LISDEXAMFETAMINE DIMESYLATE (VYVANSE ORAL) Take by mouth. (Patient not taking: Reported on 12/28/2021) ALLERGIES: ALLERGIES Allergen Reactions Bupropion Other: See Comments Pt had phsycological anger issues with this medication. Ibuprofen Other: See Comments Can not take with current meds VITALS: BP 128/78 Pulse 71 Temp 36.6 C (97.9 F) (Tympanic) Resp 16 SpO2 97% PHYSICAL EXAM: GEN: pleasant, no acute distress, alert. Sitting in wheelchair. Accompanied by senior care caregiver. ANKLE: right . Swelling not present. No erythema, no ecchymosis. Chronic pes planus/valgus deformity. Range of motion: inversion - non-painful, eversion - non-painful, anterior drawer- non-painful. Palpation: Medial malleolus non-painful, lateral malleolus non-painful, Dorsal proximal midfoot - identified as location of pain but nontender to palpation, proximal 5th metatarsal non-painful, posterior calcaneus non-painful ASSESSMENT/PLAN: 1. Acute right ankle pain - ICD9: 719.47, 338.19, ICD10: M25.571 - XR ANKLE GENERAL 3V AP/LAT/OBL RIGHT - no acute finding. As needed analgesia. He may use walker or wheelchair. Advance activity as tolerated. [employer] paperwork filled out to return on Monday. Williams Jason MD documented [facility] encounter [facility] Recurrent falls- Primary Knee strain, right, sequela [facility] Diagnosis Pruritic rash- Primary Smoker Tobacco use disorder [facility] Diagnosis Smoker Tobacco use disorder Pruritic rash [facility] Diagnosis Smoker Tobacco use disorder [facility] Diagnosis Routine general medical examination at health care facility- Primary Routine general medical examination at a health care facility Right wrist pain Pain in joint, forearm HTN (hypertension), benign Essential hypertension, benign Nicotine dependence, cigarettes, uncomplicated Needs flu shot Need for prophylactic vaccination and inoculation against influenza Need for vaccination for pneumococcus [facility] Diagnosis Pain- Primary Generalized pain [facility] Diagnosis Right wrist pain- Primary Pain in joint, forearm Primary osteoarthritis of right wrist [facility] Diagnosis Right wrist pain Pain in joint, forearm documented in this encounter [facility] for referral (narrative)* Diagnostic Procedure Only (Urgent) - Closed Specialty Diagnoses / Procedures Referred By Contac t Referred To Contact XR IMAGING Diagnoses Acute right ankle pain Procedures XR ANKLE GENERAL 3V AP/LAT/OBL RIGHT RADEX ANKLE COMPLETE MINIMUM 3 VIEWS Williams Jason MD [address] [place] [address] Xr Imaging Referral ID Status Reason Start Date Expiration Date V isits Requested Visits Authorized [id number] Closed Auto-Generate d Referral 05/27/2022 06/26/2023 1 1 [facility] for referral (narrative)* Consultation (Routine) - Pending Review Specialty Diagnoses / Procedures Referred By Contac t Referred To Contact Sports Medicine Diagnoses Right wrist pain Procedures MT OFFICE/OUTPATIENT [facility] MDM 60-74 MINUTES Oleg Mccoy MD [address] [facility] [address] [place] [address] [place] [address] Referral ID Status Reason Start Date Expiration Date Visits Requested Visits Authorized [id number] Pending Review Specialty Services Required 3 01/06/2024 1 1 [facility] for referral (narrative)* Diagnostic Procedure Only (Urgent) - Closed Specialty Diagnoses / Procedures Referred By Contac t Referred To Contact XR IMAGING Diagnoses Pain Procedures XR ANKLE GENERAL 3V AP/LAT/OBL RIGHT RADEX ANKLE COMPLETE MINIMUM 3 VIEWS Soraya Tineo APRN.[employer] [address] [place] [address] [place] [id number] Referral ID Status Reason Start Date Expiration Date V isits Requested Visits Authorized [id number] Closed Auto-Generate d Referral 01/13/2023 02/12/2024 1 1 [facility] Summary Purpose Family History No Family History Records FoundNo Family History Records FoundNo Family History Records FoundNo Family History Records Found Advance Directives No Advanced Directives Records FoundNo Advanced Directives Records FoundNo Advanced Directives Records FoundNo Advanced Directives Records Found Additional Source Comments (unrecognized sect ion and content) No Status Records FoundNo Status Records FoundNo Status Records FoundNo Status Records Found INFORMATION SOURCE (unrecogn ized section and content) DATE CREATED AUTHOR AUTHOR'S ORGANIZ ATION [facility] DATE CREATED AUTHOR AUTHOR'S ORGANIZ ATION 01/15/2023 [facility] DATE CREATED AUTHOR AUTHOR'S ORGANIZ ATION 03/25/2023 [facility] [employer] [facility] Source Comments (unrecognize d section and content) In the event this informatio n is protected by the Federal Confidentiality of Alcohol and Drug Abuse Patient Records regulations: The Federal rules restrict any use of the information to criminally investigate or prosecute any alcohol or drug abuse patient.[facility] the event this information is protected by the Federal Confidentiality of Alcohol and Drug Abuse Patient Records regulations: The Federal rules restrict any use of the information to criminally investigate or prosecute any alcohol or drug abuse patient.[facility] Reason for Visit (unrecogniz ed section and content) Reason Onset Date Comments [facility] 06/20/2022 Reason Comments Follow-up Pt here to follow up after being seen in the ER Reason Onset Date Comments Skin Lesion 11/01/2022 Reason Comments Rash Pt states he has a s pot on the back of his left leg. Pt noticed it a few weeks ago and they put hydrocortisone cream on it but it didn't help. Pt denies pain but it itches. Reason Onset Date Comments Med Change Request 11/08/2022 nicotine heydi crilex (Commit) 2 MG lozenge Reason Comments Medicare Annual Wellness Visit Subsequen t Pt would like to discuss right wrist, has been having trouble grabbing things. Reason Comments right ankle pain X 1 day-cannot recal l an linjry Reason Onset Date Comments [facility] 01/12/2023 Reason Onset Date Comments Med Refill 12/27/2022 New Med Request 12/27/2022 Tylenol Reason Onset Date Comments Med Refill 01/24/2023 Tylenol Reason Comments Wrist Pain Right Specialty Diagnoses / Procedures Referred By Contac t Referred To Contact Sports Medicine Diagnoses Right wrist pain Procedures MT OFFICE/OUTPATIENT NEW HIGH MDM 60-74 MINUTES Oleg Mccoy MD [address] [place] [address] [place] [id number] [facility] [place] [address] Referral ID Status Reason Start Date Expiration Date V isits Requested Visits Authorized [id number] Closed Specialty Services Required 01/06/2023 01/06/2024 1 1 Reason Comments Med Refill Care Teams (unrecognized sec tion and content) Learning Design Specialist Relationship Specialty Start Date End Date Oleg Mccoy MD [address] [place] [address] PCP - General 08/25/18 Learning Design Specialist Relationship Specialty Start Date End Date Oleg Mccoy MD [facility] [place] [address] PCP - General 08/25/18 Learning Design Specialist Relationship Specialty Start Date End Date Oleg Mccoy MD [facility] [place] [address] PCP - General 08/25/18 Learning Design Specialist Relationship Specialty Start Date End Date Oleg Mccoy MD [facility] [place] [address] PCP - General 08/25/18 Learning Design Specialist Relationship Specialty Start Date End Date Oleg Mccoy MD [address] [place] [address] PCP - General 08/25/18 Learning Design Specialist Relationship Specialty Start Date End Date Oleg Mccoy MD [address] [place] [address] PCP - General 08/25/18 Learning Design Specialist Relationship Specialty Start Date End Date Mauro Romo Jr. [address] [place] [address] PCP - General 07/07/00 Learning Design Specialist Relationship Specialty Start Date End Date Oleg Mccoy MD [address] [place] [address] PCP - General 08/25/18 Learning Design Specialist Relationship Specialty Start Date End Date Oleg Mccoy MD [address] [place] [address] PCP - General 08/25/18 Learning Design Specialist Relationship Specialty Start Date End Date Oleg Mccoy MD [address] [place] [address] PCP - General 08/25/18 Learning Design Specialist Relationship Specialty Start Date End Date Oleg Mccoy MD [address] [place] [address] PCP - General 08/25/18 Learning Design Specialist Relationship Specialty Start Date End Date Oleg Mccoy MD [address] [place] [address] PCP - General 08/25/18 FOR RECORDS PERTAINING TO PATIENTS WHO ARE OR HAVE BEEN ENROLLED IN A CHEMICAL DEPENDENCY/SUBSTANCEABUSE PROGRAM, SOME INFORMATION MAY BE OMITTED. This clinical summary was aggregated from multiple sources. Caution should be exercised in using it in the provision of clinical care. This summary normalizes information from multiple sources, and as a consequence, information in this document may materially change the coding, format and clinical context of patient data. In addition, data may be omitted in some cases. CLINICAL DECISIONS SHOULD BE BASED ON THE PRIMARY CLINICAL RECORDS. [facility] [employer] [facility]. provides no warranty or guarantee of the accuracy or completeness of information in this document.
== END 2023-03-28 15:41 | disposition home or self-care (01) ==
PROVIDERS: Emergency Provider Emergency Medicine; PCP Family Medicine; Visit Provider Emergency Medicine
DX: S70.02XA Contusion of left hip, initial encounter (principal); F17.210 Nicotine dependence, cigarettes, uncomplicated; W19.XXXA Unspecified fall, initial encounter
CPT/HCPCS: 72170; 73552; 99282

== ENCOUNTER 2024-06-14 09:39 | Emergency (ER) | payer MEDICARE, MEDICAID, SELFPAY ==
[2024-06-14 09:39] VITALS: BP 141/90; PULSE 69; RESP 16; TEMP 36.4; O2SAT 97
--- NOTE | 2024-06-14 09:53 | EDS_ITS ---
HPI HPI - GI History of Present Illness Chief Complaint: Abd Pain Informant: patient Narrative Narrative: 43-year-old male woke up with right sided abdominal pain today. Denies any pain in his back, migration, radiation. He is nauseated but no vomiting. No history of any abdominal surgeries. Denies any diarrhea or known fevers. [facility] Medical History (Updated 06/14/24 @ 14:[address] Brandon Amaya MD) Hypertension Home Medications ?Medication ?Instructions ?Recorded ?Last Taken ?Type dicyclomine 20 mg tablet 20 mg PO Q6H PRN PRN abdomin al 06/14/24 Unknown Rx discomfort #12 tabs pantoprazole 40 mg tablet,delayed 40 mg PO DAILY #14 t abs 06/14/24 Unknown Rx release Allergy/AdvReac Type Severity Reaction Status Date / Time No Known Allergies Allergy Verified 06/14/24 09:44 Social History Smoking Status: Current every day smoker tobacco type: cigarettes ROS ROS ED Constitutional Constitutional ED: Denies chills or fever(s) Eyes Eyes: Denies change in vision or diplopia ENT ENT ED: Denies rhinorrhea or sore throat Cardiovascular Cardiovascular: Denies chest pain or palpitations Respiratory/Chest Respiratory/Chest: Denies cough or dyspnea Gastrointestinal Gastrointestinal: Reports abdominal pain and nausea; Denies diarrhea or vomiting Genitourinary Genitourinary ED: Denies dysuria or hematuria Musculoskeletal Musculoskeletal: Denies back pain or neck pain Integumentary Denies abscess or rash Neurologic Neurologic: Denies headache(s), paresthesias or weakness Psychiatric Psychiatric: Denies anxiety or suicidal thoughts EXAM Physical Exam Const Vital Signs: 06/14/24 09:39 06/14/24 10:23 06/14/24 13:00 Temperature 97.6 F L 97.9 F 97.9 F Temperature Source Temporal Oral Temporal Pulse Rate 69 69 69 Respiratory Rate 16 15 16 Blood Pressure 141/90 H 141/90 H 122/81 H Blood Pressure Mean 107 107 94 Pulse Ox 97 97 100 Oxygen Delivery Method Room Air Room Air Room Air Positive well nourished and well developed General Appearance ED: well developed and NAD HEENT Reports moist mucous membranes normocephalic and atraumatic Eyes PERRL and EOMs intact bilaterally Neck full ROM and supple Resp normal respiratory effort and clear to auscultation bilaterally Cardio regular rate, regular rhythm and no murmurs GI non-distended GI Narrative: Tenderness throughout the right side except for the pelvis, without guarding or rebound tenderness. He is tender in the right upper quadrant in addition to McBurney's point and the entire area in between. Negative Rovsing, equivocal psoas, negative obturator. Auscultation: normoactive bowel sounds Palpation: soft Narrative: Normal perineum and perirectal, buttock exam. No wounds. Back/Spine no CVA tenderness General Back: other FROM Extremity normal to inspection Extremity Narrative: Both lower extremities are in foot braces. General Extremety ED: Negative for edema, pulses abnormal or tenderness General Extremity: Negative for edema or pulses abnormal Neuro oriented x3, CN's II-XII intact bilaterally and no sensory deficits noted Sensorium / Orientation: awake and alert Motor Exam: strength 5/5 throughout Skin no rashes or lesions noted and no wounds MDM MDM MDM Narrative Medical decision making narrative: Differential here includes kidney stone, appendicitis, biliary pathology, GI pathology. He is diffusely tender throughout the right side including McBurney's point but also the right upper quadrant. He was given Toradol and Zofran along with some IV fluids and kept n.p.o. while we obtained a CT and some labs. Liver enzymes and lipase are all normal, he does not have a leukocytosis or leftward shift/bandemia, and CT shows normal appendix. I reviewed the CT images and the result which I agree with. There are some nonspecific findings, and radiology was questioning whether he had a wound or not, he does not and his exam is fairly normal there without any reproducible tenderness or skin changes or wounds in his buttocks and region of ischial tuberosities. Also seen some mild fatty infiltration of the liver, since he does not have any liver enzyme elevations, this is likely incidental and not related to his acute pain. He did not feel better after Toradol, so additionally treated him for upper GI etiologies with dicyclomine and Mylanta. After this, he states the symptoms/pain resolved and he feels much better. Will give him a prescription to use as needed as well as a 2-week trial of a PPI. Follow-up advised. Lab Data Attestation: I reviewed the patient's lab results. Labs: Laboratory Results - last 24 hr 06/14/24 06/14/24 10:10 13:16 WBC 10.0 RBC 4.48 L Hgb 14.4 Hct 40.9 MCV 91.3 MCH 32.1 H MCHC 35.2 RDW Std Deviation 41.6 RDW Coeff of Yasmin 12.5 Plt Count 383 MPV 9.5 Immature Gran % (Auto) 0.500 Neut % (Auto) 72.7 H Lymph % (Auto) 15.[address] [place] % (Auto) 8.8 Eos % (Auto) 1.6 Baso % (Auto) 0.8 Absolute Neuts (auto) 7.3 Absolute Lymphs (auto) 1.56 Nucleated RBC % 0 Sodium 133 Potassium 4.8 Chloride 100 Carbon Dioxide 23.5 Anion Gap 10 BUN 17 Creatinine 0.80 Estim Creat Clear Calc 110.17 Est GFR (MDRD) Non-Af 112 BUN/Creatinine Ratio 21.7 H Glucose 98 Calcium 9.8 Total Bilirubin 0.50 AST 23 ALT 29 Alkaline Phosphatase 65 Total Protein 7.0 Albumin 4.4 Globulin 2.6 Albumin/Globulin Ratio 1.7 Lipase 39 Urine Color Yellow Urine Clarity Clear Urine pH 6.5 Ur Specific [place] 1.005 Urine Protein 15 H Urine Glucose (UA) Normal Urine Ketones Negative Urine Occult Blood Negative Urine Nitrite Negative Urine Bilirubin Negative Urine Urobilinogen Normal Ur Leukocyte Esterase Negative Urine RBC 0 SEEN Urine WBC 0-5 SEEN Ur Squamous Epith Cells 0-5 SEEN Ur Transition Epith Cell 0-5 SEEN Urine Bacteria 0 SEEN Urine Mucus 0 SEEN Radiography Diagnostic Testing: Clinical Impression(s) from Imaging Studies Abdomen/Pelvis CT 06/14/24 11:22 IMPRESSION: 1. Asymmetric skin thickening and subcutaneous stranding in the RIGHT greater th an LEFT posteromedial aspect of the proximal most thigh in the regions of the ischial tuberosities. Correlate for focal infectious/inflammatory process or perhaps early decubitus ulcer formation. This could conceivably be related to scoliosis and associated altered biomechanics. 2. Diffuse hepatic steatosis and mild hepatomegaly. Correlate for clinical and laboratory evidence of chronic liver disease. 3. Additional description as above. Reading Location: [id number] Discharge Plan Triage Chief Complaint: Abd Pain ED Provider: Brandon Amaya Dx/Rx/DC Orders Clinical Impression: Right-sided abdominal pain of unknown cause Instructions: Abdominal Pain Prescriptions: New dicyclomine 20 mg tablet 20 mg PO Q6H PRN PRN (Reason: abdominal discomfort) Qty: 12 0RF pantoprazole 40 mg tablet,delayed release (DR/EC) 40 mg PO DAILY Qty: 14 0RF Primary Care Provider: Oleg Mccoy Referrals: Oleg Mccoy MD [Primary Care Provider] - 3-5 Days if not improving Print Language: Estonian Disposition Disposition: Home, Self Care
[2024-06-14 10:17] LABS: Absolute Lymphocyte Count 1.56 X10^3/uL (0.83-4.51); Absolute Neutrophil Count 7.3 X10^3/uL (2.0-7.7); Basophil# 0.08 X10^3/uL; Basophil% 0.8 % (0-1); Eosinophil# 0.16 X10^3/uL; Eosinophils% 1.6 % (0-5); Hematocrit 40.9 % (40-54); Hemoglobin 14.4 g/dL (13.0-16.5); Lymphocyte # 1.56 X10^3/ul (0.83-4.51); Lymphocyte % 15.6 % (19-41); Mean Corp Hgb Conc 35.2 g/dL (32-36); Mean Corpuscular Hgb 32.1 pg (27.0-32.0); Mean Corpuscular Volume 91.3 fL (80-94); Mean Platelet Vol. 9.5 fl (6.2-12.0); Monocyte# 0.88 X10^3/uL; Monocyte% 8.8 % (0-10); NRBC Flagged by Analyzer 0 % (0-5); Neutrophil # 7.25 X10^3/uL (2.7-7.7); Neutrophil % 72.7 % (47-70); Platelet Count 383 K/mm3 (150-450); RBC Distribution Width CV 12.5 % (11.6-14.6); RBC Distribution Width SD 41.6 fl (35.1-43.9); Red Blood Count 4.48 M/mm3 (4.6-6.2)
[2024-06-14] MEDS: Ketorolac 15 MG/ML Vial IV (10:17)
[2024-06-14] MEDS: 0.9% Normal Saline (1000mL) 1,000 ML 125 ML IV (10:17)
[2024-06-14] MEDS: Ondansetron 4 MG/2 ML Vial IV (10:18)
[2024-06-14 10:19] VITALS: BMI 27.3
[2024-06-14 10:23] VITALS: BP 141/90; PULSE 69; RESP 15; TEMP 36.6; O2SAT 97
[2024-06-14 10:57] LABS: ALB/GLOB Ratio 1.7 RATIO (0.9-2.4); AST(SGOT) 23 U/L (<=37); Alanine Aminotransfer ALT/SGPT 29 U/L (<=46); Albumin, Serum 4.4 g/dL (3.5-5.0); Alkaline Phosphatase 65 U/L (40-129); Anion Gap 10 (5-15); BUN 17 mg/dL (4-19); BUN/Creat Ratio 21.7 RATIO (10-20); Calcium,Total 9.8 mg/dL (7.6-11.0); Carbon Dioxide 23.5 mmol/L (21.0-32.0); Chloride 100 mmol/L (98-108); EST Glomerular Filtration Rate 112 (>60); Estimated Creatinine Clearance 110.17 ml/min (50-250); Globulin 2.6 g/dL (2.2-4.2); Glucose 98 mg/dL (70-99); Lipase 39 U/L (13-75); Potassium 4.8 mmol/L (3.3-5.1); Sodium Level 133 mmol/L (133-145)
--- NOTE | 2024-06-14 11:22 | CT_ITS ---
PROCEDURE: ABDOMEN/PELVIS W IV CONT ONLY (procedure code [id number]), 06/14/2024 REASON FOR EXAM: RIGHT SIDED ABD PAIN TECHNIQUE: CT abdomen and pelvis was performed with IV contrast. Multiplanar reformats were generated. CONTRAST: Isovue-300 VOLUME: 93mL RADIATION DOSE SUMMARY: CTDlvol: 16.62 mGy DLP: 787.43 mGycm One or more dose reduction techniques were used (e.g., Automated exposure control, adjustment of the mA and/or kV according to patient size, use of iterative reconstruction technique). COMPARISON: None FINDINGS: Mild/moderate motion limitation focally through the mid abdomen. Lung bases: Dependent atelectasis/scarring. Small hiatal hernia. Liver: Steatosis and mild hepatomegaly. Spleen: Top-normal in size. Gallbladder: Unremarkable. Pancreas: Unremarkable. Adrenals: Unremarkable. Kidneys: Unremarkable. Bowel: Gastric underdistention limits evaluation of wall thickness. Mild diverticulosis. 19 mm fluid attenuating structure along the colonic splenic flexure is nonspecific but may reflect a fluid-filled diverticulum or perhaps a duplication cyst. Normal caliber appendix. Lymph nodes: Unremarkable. Vasculature: Unremarkable. Peritoneum: Unremarkable. Bladder: Bulging of the RIGHT anterolateral bladder wall into the RIGHT inguinal region without clear herniation currently. Reproductive Organs: Minimally imaged at least trace to small LEFT hydrocele. Body Wall: Few calcifications surrounding an encapsulated RIGHT inguinal fat lobule are nonspecific but may reflect a focus of chronic fat necrosis. Asymmetric skin thickening and subcutaneous stranding in the RIGHT greater than LEFT posteromedial aspect of the proximal most thigh in the regions of the ischial tuberosities. Bones: Multilevel spondylosis. L5 pars defects with grade 1 anterolisthesis. Prominent lumbar dextroscoliosis. Trace thoracic S shaped scoliosis. Small sclerotic presumed RIGHT iliac bone island in the absence of known malignancy. CT/Abdomen/Pelvis W IV Cont ONLY IMPRESSION: 1. Asymmetric skin thickening and subcutaneous stranding in the RIGHT greater t amato LEFT posteromedial aspect of the proximal most thigh in the regions of the ischial tuberosities. Correlate for focal infectio us/inflammatory process or perhaps early decubitus ulcer formation. This could conceivably be related to scoliosis and associated altered biomechanics. 2. Diffuse hepatic steatosis and mild hepatomegaly. Correlate for clinical and laboratory evidence of chronic liver disease. 3. Additional description as above. Reading Location: [id number]
[2024-06-14 13:00] VITALS: BP 122/81; PULSE 69; RESP 16; TEMP 36.6; O2SAT 100
[2024-06-14 13:22] LABS: Bacteria 0 SEEN /hpf (None Seen); Mucous, Urine 0 SEEN /hpf (<or=2+)
[2024-06-14 13:31] LABS: Color, Urine Yellow (Yellow); Glucose, Dipstick Normal (Normal); Ketone-Dipstick Negative (Negative); Leukocyte Esterase-Dipstick Negative /ul (Negative); Nitrite-Dipstick Negative (Negative); Occult Blood-Urine Negative /ul (Negative); Protein-Dipstick 15 mg/dl (Negative); Specific Gravity, Urine 1.005 (1.002-1.030); Urine Bilirubin Dipstick Negative (Negative); Urine Clarity Clear (Clear); Urine Urobilinogen Normal (Normal); Urine pH 6.5 (5.0 - 8.0)
[2024-06-14 13:41] LABS: Squamous Epithelial Cells - UA 0-5 SEEN /hpf (0-5); Transitional Epithelial - Ur 0-5 SEEN /hpf (0-5); White Blood Cells 0-5 SEEN /hpf (0-5)
[2024-06-14 13:42] LABS: Red Blood Cells-Urine 0 SEEN /hpf (0-5)
[2024-06-14] MEDS: Dicyclomine 10 MG Capsule 20 MG PO (14:09)
[2024-06-14] MEDS: Mag Hydrox/Al Hydrox/Simeth 30 ML UDC PO (14:09)
[2024-06-14 15:00] VITALS: BP 116/80; PULSE 68; RESP 16; O2SAT 99
[2024-06-14 15:59] VITALS: BP 117/72; PULSE 72; RESP 16; TEMP 36.5; O2SAT 99
== END 2024-06-14 16:00 | disposition home or self-care (01) ==
PROVIDERS: Emergency Provider Emergency Medicine; PCP Family Medicine; Visit Provider Emergency Medicine
DX: R10.11 Right upper quadrant pain (principal); R11.0 Nausea; K76.0 Fatty (change of) liver, not elsewhere classified; F17.210 Nicotine dependence, cigarettes, uncomplicated
CPT/HCPCS: 74177; 80053; 81001; 83690; 85025; 96361; 96374; 96375; 99283; Q9967; A4216; J2405

== ENCOUNTER → 2024-08-01 | Outpatient (CLI) | payer MEDICARE, MEDICAID, SELFPAY ==
[2024-08-01 08:15] LABS: Absolute Lymphocyte Count 1.96 X10^3/uL (0.83-4.51); Absolute Neutrophil Count 5.1 X10^3/uL (2.0-7.7); Basophil# 0.06 X10^3/uL; Basophil% 0.7 % (0-1); Eosinophil# 0.31 X10^3/uL; Eosinophils% 3.7 % (0-5); Hematocrit 46.5 % (40-54); Hemoglobin 15.8 g/dL (13.0-16.5); Lymphocyte # 1.96 X10^3/ul (0.83-4.51); Lymphocyte % 23.5 % (19-41); Mean Corpuscular Hgb 31.5 pg (27.0-32.0); Mean Corpuscular Volume 92.6 fL (80-94); Mean Platelet Vol. 9.5 fl (6.2-12.0); Monocyte# 0.86 X10^3/uL; Monocyte% 10.3 % (0-10); NRBC Flagged by Analyzer 0 % (0-5); Neutrophil % 61.2 % (47-70); Platelet Count 371 K/mm3 (150-450); RBC Distribution Width CV 13.2 % (11.6-14.6); Red Blood Count 5.02 M/mm3 (4.6-6.2); White Blood Count 8.3 K/mm3 (4.4-11.0)
[2024-08-01 08:41] LABS: Hemoglobin A1c 5.6 % (<=5.6)
[2024-08-01 09:01] LABS: ALB/GLOB Ratio 1.7 RATIO (0.9-2.4); AST(SGOT) 41 U/L (<=37); Alanine Aminotransfer ALT/SGPT 49 U/L (<=46); Albumin, Serum 4.6 g/dL (3.5-5.0); Alkaline Phosphatase 68 U/L (40-129); Anion Gap 10 (5-15); BUN 18 mg/dL (4-19); BUN/Creat Ratio 21.8 RATIO (10-20); Calcium,Total 9.5 mg/dL (7.6-11.0); Carbon Dioxide 24.6 mmol/L (21.0-32.0); Chloride 104 mmol/L (98-108); Cholesterol 158 mg/dL (<=200); EST Glomerular Filtration Rate 112 (>60); Globulin 2.7 g/dL (2.2-4.2); Glucose 96 mg/dL (70-99); High Density Lipoprotein 34 mg/dL; Low Density Lipoprotein Calc. 91 mg/dL; Potassium 4.9 mmol/L (3.3-5.1); Protein, Total 7.3 g/dL (5.9-8.4); Sodium Level 139 mmol/L (133-145); Total Bilirubin 0.64 mg/dL (0.00-1.30); Triglycerides 166 mg/dL; Very Low Density Lipoprotein 33 mg/dL (5-40); cholesterol:hdl ratio screen 4.63
== END | disposition home or self-care (01) ==
LOC: LAB 07:58
PROVIDERS: PCP Family Medicine; Referring Provider Psychiatry & Neurology Child & Adolescent Psychiatry; Visit Provider Psychiatry & Neurology Child & Adolescent Psychiatry
DX: Z79.899 Other long term (current) drug therapy (principal)
CPT/HCPCS: 36415; 80053; 80061; 83036; 85025